=== PATIENT | female | born 1940 | race Caucasian/White ===

== ENCOUNTER 2016-08-18 12:19 | Emergency (ER) | payer OTHER ==
--- NOTE | 2016-08-18 13:59 | DIAGNOSTIC IMAGING REPORT ---
PROCEDURE: XR CHEST 1 VIEW INDICATION: COPD TECHNIQUE: Portable AP view 01:41 p.m. COMPARISON: None. FINDINGS: Lungs are clear. Heart and mediastinum are normal. Thorax is normal. IMPRESSION: 1. Negative chest.
--- NOTE | 2016-08-18 15:55 | ED NURSING NOTES ---
Clinical Report - Nurses [facility] [address] [place] [address] 08/18/2016 12:20 Patient: JOSY WELDON TRIAGE Triage time 12:48. Acuity: LEVEL 3. Chief Complaint: (Acid Reflux, COPD, Cold,). Alert. No acute distress. --13:00 Clarence Cummings R.N. 12:48 08/18/16. BP: 177/99. HR: 110. RR: 20. O2 saturation: 94%. Temp: 98.5 F. Pain level now 0/10. --13:00 Clarence Cummings R.N. 12:50. --14:06 Clarence Cummings R.N. Weight: 86.1 kg stated. Height/Length: 68 inches Per Patient. BMI: 28.9. --12:58 Clarence Cummings R.N. Medications Advair Diskus Inhalation. Atenolol Oral 50 mg, 2x a day. Calcium. ClonazePAM Oral 1 mg, 3x a day. Diltiazem ER 180 mg , daily (just recently increased from 120 mg). Levothyroxine Sodium Oral 50 mcg, daily. Lovastatin Oral 40 mg q day. Naproxen Oral 500 mg. Trazodone 50 mg q HS. Vitamin D Oral. Zymaxid Ophthalmic. --12:52 Clarence Cummings R.N. Omeprazole Oral. --12:53 Clarence Cummings R.N. Venlafaxine HCl Oral 75 mg, daily. --12:56 Clarence Cummings R.N. Allergies Codeine. --12:52 Clarence Cummings R.N. History Arrived by private vehicle. Historian: patient and family. This started last night. SOCIAL HX: Former smoker, end date 1979. Alcohol use. No drug use. FALL RISK ASSESSMENT: Fall risk assessment completed. No fall risk identified. NUTRITIONAL RISK ASSESSMENT: The nutritional risk assessment revealed no deficiencies. --13:00 Clarence Cummings R.N. ( Patient's daughter states that her mother is prescribed omeprazole, but does not take it BID as prescribed, but takes it when she had pain.). --14:06 Clarence Cummings R.N. PROBLEMS: Lewey Body Dementia. --13:03 Clarence Cummings R.N. Interventions ID band on patient. To room. --13:00 Clarence Cummings R.N. PHYSICAL ASSESSMENT GENERAL / NEURO / PSYCH: Alert. Oriented X 4. Appears in no acute distress. RESPIRATORY: Respirations not labored. GI / : Abdomen soft. SKIN: Skin is warm and dry. --13:03 Clarence Cummings R.N. NURSING PROGRESS NOTES Patient gowned. Two patient identifiers checked. Call light placed in reach. Side rails up x 1. Bed placed in lowest position. Brakes of bed on. --13:04 Clarence Cummings R.N. 13:55 08/18/2016 Duoneb (Ipratropium-Albuterol) Neb TX Nebulizer 1 unit dose given. Given by the respiratory therapist. Allergies verified and confirmed 5 rights. --13:55 Kiley Dixon R.N. 14:24 08/18/2016 Site #1 started via IV in the left forearm with an 20g angiocath, with aseptic technique; one attempt. Blood drawn: rainbow set. Sent to the lab. Saline lock flushed with 10 mL saline. --14:24 Clarence Cummings R.N. 14:24 08/18/2016 Started bag #1 1000 mL IV Fluids IV NS (Saline); at 1000 mL/hr over 1 hour(s) via site #1 --14:24 Clarence Cummings R.N. 14:32 08/18/2016 Prednisone PO Tablets 40 mg given. --14:32 Clarence Cummings R.N. ( Patient resting. IV infusing.). --15:09 Clarence Cummings R.N. ( IV fluids complete, bag unhooked and IV flushed by Mona KENNEDY. One person assisted patient to bathroom.). --15:45 Anne Freire, CATHRYN Tech1 15:44 08/18/2016 IV Fluids IV NS Discontinued: bag #1 completed upon discharge. Total amount infused: 1000 mL. IV patency established. IV site checked: no pain, redness, or swelling. IV flushed thoroughly. --15:59 Clarence Cummings R.N. 15:49 08/18/2016 Levaquin (Levofloxacin) PO Capsules 500 mg given. --15:59 Clarence Cummings R.N. 15:55 08/18/2016 Site #1 removed upon discharge. Catheter intact. Bandaid applied. --16:00 Clarence Cummings R.N. DISPOSITION / DISCHARGE Condition at departure: improved. No learning barriers present. Discharge instructions provided and reviewed with the patient and family. Family verbalized understanding. Written instructions provided in Yakut. The patient was discharged by the physician. She was discharged home and accompanied by family. She left the Emergency Department ambulatory. --16:12 Clarence Cummings R.N. 16:10 08/18/16. BP: 168/95. HR: 64. RR: 20. O2 saturation: 95%. Temp: 98.5 F. Pain level now 0/10. --16:12 Clarence Cummings R.N. Locked/Released at 08/18/2016 16:16 by Clarence Cummings R.N.
--- NOTE | 2016-08-18 15:55 | ED ORDER SUMMARY ---
..... Patient: JOSY WELDON OrderSheet [facility] VisitID: [id number] [place] [address] 76y, F Registration Date/Time: 08/18/2016 ORDER SHEET Weight: 86.1 kg (stated) Allergies: Codeine GENERAL ORDERS: Chest 1V Urgent (13:31 08/18/2016 [facility]) (Ack 13:36 [place]ouse ER Tech1) (14:33 GMarshall R.N.) CBC w Diff Urgent (13:33 08/18/2016 [facility]) (Ack 13:36 VTouse ER Tech1) (14:33 GMarshall R.N.) CMP Urgent (13:33 08/18/2016 [facility]) (Ack 13:36 VTouse ER Tech1) (14:33 GMarshall R.N.) MEDICATION ORDERS: DuoNeb Neb Tx 1 unit dose (NOW) (13:32 08/18/2016 [facility]) (13:55 LSullivan R.N.) Prednisone PO 40 mg (NOW) (13:33 08/18/2016 [facility]) (Ack 13:57 GMarshall R.N.) (14:32 GMarshall R.N.) Levaquin PO 500 mg (NOW) (15:52 08/18/2016 [facility]) (15:59 GMarshall R.N.) IV FLUIDS: IV NS : initial bolus none -, then 1000 mL/hr for X1 (NOW) (13:30 08/18/2016 [facility]) (14:24 GMarshall R.N.) ORDER SHEET NOTES: [Electronically signed by Jacob Romero Dr. (16:02 08/18/2016)] [Electronically signed by Clarence Cummings R.N. (16:16 08/18/2016)] [Electronically locked/signed by Clarence Cummings R.N. (16:16 08/18/2016)]
--- NOTE | 2016-08-18 15:55 | ED ORDER SUMMARY ---
..... Patient: JOSY WELDON OrderSheet [facility] VisitID: [id number] [place] [address] 76y, F Registration Date/Time: 08/18/2016 ORDER SHEET Weight: 86.1 kg (stated) Allergies: Codeine GENERAL ORDERS: Chest 1V Urgent (13:31 08/18/2016 [facility]) (Ack 13:36 [place] ER Tech1) (14:33 GMarshall R.N.) CBC w Diff Urgent (13:33 08/18/2016 [facility]) (Ack 13:36 [place] ER Tech1) (14:33 GMarshall R.N.) CMP Urgent (13:33 08/18/2016 [facility]) (Ack 13:36 [place] ER Tech1) (14:33 GMarshall R.N.) MEDICATION ORDERS: DuoNeb Neb Tx 1 unit dose (NOW) (13:32 08/18/2016 [facility]) (13:55 LSullivan R.N.) Prednisone PO 40 mg (NOW) (13:33 08/18/2016 [facility]) (Ack 13:57 GMarshall R.N.) (14:32 GMarshall R.N.) Levaquin PO 500 mg (NOW) (15:52 08/18/2016 [facility]) (15:59 GMarshall R.N.) IV FLUIDS: IV NS : initial bolus none -, then 1000 mL/hr for X1 (NOW) (13:30 08/18/2016 [facility]) (14:24 GMarshall R.N.) ORDER SHEET NOTES: [Electronically signed by Jacob Romero Dr. (16:02 08/18/2016)] [Electronically signed by Clarence Cummings R.N. (16:16 08/18/2016)] [Electronically locked/signed by Clarence Cummings R.N. (16:16 08/18/2016)]
--- NOTE | 2016-08-18 15:55 | ED CLINICAL REPORT ---
Clinical Report - Physicians/Mid Levels [facility] [address] [place] [address] 08/18/2016 12:20 Patient: JOSY WELDON Time Seen: 13:11; initial patient contact. Arrived- By private vehicle. Historian- patient. HISTORY OF PRESENT ILLNESS Chief Complaint: HISTORY OF CHRONIC OBSTRUCTIVE PULMONARY DISEASE. This started several days ago and is still present. The dyspnea is described as moderate and is worsened by cough. The patient has had sputum production, a cough and wheezing. No fever, sweating episodes or chills. Similar symptoms previously: Many times. Recent medical care: Not recently seen/assessed. REVIEW OF SYSTEMS No sore throat, nausea or vomiting. She has had a nasal discharge and sinus drainage. All systems otherwise negative, except as recorded above. PAST HISTORY Lewey Body dementia HTN GERD Alcoholism. Medications: Venlafaxine HCl Oral 75 mg, daily. Omeprazole Oral. Advair Diskus Inhalation. Atenolol Oral 50 mg, 2x a day. Calcium. ClonazePAM Oral 1 mg, 3x a day. Diltiazem ER 180 mg , daily (just recently increased from 120 mg). Levothyroxine Sodium Oral 50 mcg, daily. Lovastatin Oral 40 mg q day. Naproxen Oral 500 mg. Trazodone 50 mg q HS. Vitamin D Oral. Zymaxid Ophthalmic. Allergies: Codeine. SOCIAL HISTORY Former smoker. Alcohol use. Patient is a longstanding alcoholic. No drug use. ADDITIONAL NOTES The nursing notes have been reviewed with agreement regarding the chief complaint, PMH and patient medications and allergies. PHYSICAL EXAM Vital Signs: 08/18/2016 12:48 BP: 177/99. HR: 110. RR: 20. O2 saturation: 94%. Temp: 98.5 F. Have been reviewed. Hypertensive. Tachycardic. Respiratory rate normal. Temperature normal. Oxygen saturation low. Appearance: Alert. No acute distress. Eyes: Eyes normal inspection. ENT: Dry mucous membranes present. Neck: No jugular venous distention. CVS: Normal heart rate and rhythm. Heart sounds normal. Respiratory: Mild respiratory distress with accessory muscle use and retractions. Moderately prolonged expirations. Moderately decreased air movement diffusely over both lungs. Expiratory moderate bilateral wheezes diffusely. Abdomen: Soft and nontender. Skin: Skin warm and dry. Normal skin color. No rash. Extremities: No calf tenderness. No lower extremity edema. Neuro: Oriented X 3. LABS, X-RAYS, AND EKG Chest X-ray: No acute disease. Moderate hyperinflation present on the right and left with flattening of the diaphragm. Consistent with COPD. No infiltrate. The X-rays were independently viewed by me and interpreted contemporaneously by me. Prior films were not available for comparison. Laboratory Tests: CBC w Diff: (BRANDON: 08/18/2016 14:20) ( MsgRcvd 08/18/2016 14:51) Final results Test Result Flag Units (Reference) WHITE BLOOD COUNT 5.8 K/uL (4.5-11.5) RED BLOOD COUNT 4.79 M/uL (4.00-5.20) HEMOGLOBIN 14.8 gm/dL (12.0-16.0) HEMATOCRIT 45.5 % (36.0-46.0) MEAN CELL VOLUME 95 fL (80-100) MEAN CORPUSCULAR HGB 31 pg (26-34) MEAN CORPUSCULAR HGB CONC 33 g/dL (31-37) RED CELL DISTRIBUTION WIDTH 14.6 % (11.6-14.8) PLATELET COUNT 167 K/uL (150-400) NEUTROPHIL % 65.3 % (50-75) LYMPH % 22.2 L % (25-40) MONO % 11.3 % (3-14) EOSINOPHIL % 0.9 % (0-4) BASOPHIL % 0.3 % (0-2) CMP: (BRANDON: 08/18/2016 14:20) ( MsgRcvd 08/18/2016 15:01) Final results Test Result Flag Units (Reference) GLUCOSE 124 H mg/dL (70-110) BUN 12 mg/dL (7-18) CREATININE 0.6 mg/dL (0.6-1.3) Estimated GFR >60 mL/min Estimated GFR- >60 mL/min Note: Persistent reduction over 3 months in eGFR<60 mL/min/1.73 m2 defines CKD. Patients with eGFR values>=60 mL/min/1.73 m2 may also have CKD if evidence ofpersistent proteinuria. Additional information may be foundat www.kidney.org. SODIUM 140 mmol/L (136-145) POTASSIUM 3.8 mmol/L (3.5-5.1) CHLORIDE 103 mmol/L (98-107) CARBON DIOXIDE 30 mmol/L (21-32) CALCIUM 9.0 mg/dL (8.5-10.1) TOTAL PROTEIN 7.7 g/dL (6.4-8.2) ALBUMIN 4.4 g/dL (3.3-5.0) BILIRUBIN, TOTAL 0.6 mg/dL (0.0-1.0) ALKALINE PHOSPHATASE 65 U/L (46-116) AST (SGOT) 23 U/L (15-37) ALT (SGPT) 29 U/L (12-78) . PROGRESS AND PROCEDURES Disposition: Discharged home in good and improved condition. Condition: good. CLINICAL IMPRESSION Acute exacerbation of COPD. Gastroesophageal reflux disease with esophagitis. INSTRUCTIONS Your Current Medications: CONTINUE TAKING THE FOLLOWING MEDICATIONS: Advair Diskus Inhalation. Atenolol Oral : 50 mg 2x a day. Calcium*. ClonazePAM Oral : 1 mg 3x a day. Diltiazem ER* : 180 mg daily, just recently increased from 120 mg. Levothyroxine Sodium Oral : 50 mcg daily. Lovastatin Oral : 40 mg q day. Naproxen Oral : 500 mg. Omeprazole Oral. Trazodone 50 mg q HS*. Venlafaxine HCl Oral : 75 mg daily. Vitamin D Oral. Zymaxid Ophthalmic. Prescription Medications: Levaquin 500 mg: take 1 tab orally every day for 4 days. No refills. Substitution is permissible. (Start on 08/19/16) Zantac 150 mg: take 1 orally every 12 hours. Dispense sixty (60). No refills. Substitution is permissible. Prednisone 20 mg: take 2 orally every day for 4 days. Dispense sufficient quantity. No refills. (Start on 08/19/16) Follow-up: Follow up with your doctor in about two days. Call for an appointment. Blood pressure screening was not performed during this visit because the patient has an active diagnosis of hypertension. The patient should follow up with a primary care provider for blood pressure management. (Electronically signed by Jacob Romero Dr. 08/18/2016 16:02)
--- NOTE | 2016-08-18 16:16 | ED DISCHARGE INSTRUCTIONS ---
Patient: JOSY WELDON General Instructions [facility] VisitID: [id number] [place] [address] 76y, F Registration Date/Time: 08/18/2016 Acute exacerbation of COPD. Gastroesophageal reflux disease with esophagitis. INSTRUCTIONS Your Current Medications: CONTINUE TAKING THE FOLLOWING MEDICATIONS: Advair Diskus Inhalation. Atenolol Oral : 50 mg 2x a day. Calcium*. ClonazePAM Oral : 1 mg 3x a day. Diltiazem ER* : 180 mg daily, just recently increased from 120 mg. Levothyroxine Sodium Oral : 50 mcg daily. Lovastatin Oral : 40 mg q day. Naproxen Oral : 500 mg. Omeprazole Oral. Trazodone 50 mg q HS*. Venlafaxine HCl Oral : 75 mg daily. Vitamin D Oral. Zymaxid Ophthalmic. Prescription Medications: Levaquin 500 mg: take 1 tab orally every day for 4 days. No refills. Substitution is permissible. (Start on 08/19/16) Zantac 150 mg: take 1 orally every 12 hours. Dispense sixty (60). No refills. Substitution is permissible. Prednisone 20 mg: take 2 orally every day for 4 days. Dispense sufficient quantity. No refills. (Start on 08/19/16) Follow-up: Follow up with your doctor in about two days. Call for an appointment. Blood pressure screening was not performed during this visit because the patient has an active diagnosis of hypertension. The patient should follow up with a primary care provider for blood pressure management. ADDITIONAL INFORMATION COPD Flare Both emphysema and chronic bronchitis are forms of chronic obstructive pulmonary disease (COPD). It is most often caused by many years of smoking tobacco. Many things can make your lung disease suddenly get worse. These causes include the common cold, pneumonia, acute bronchitis, missing doses of your regular breathing medicines, or being around smoke, dust, or other air pollutants. A COPD flare may last 7 to 14 days. Your doctor may prescribe medicineto relax your airways and prevent wheezing. Your doctor may also prescribe antibiotics if he or she thinks you havea bacterial infection. Prednisone can helpease inflammation in a severe attack. Home care Here are things you can do at home: Drink lots of water or other fluids (at least 10 glasses a day) during an attack. This will loosen lung secretions and make it easier to breathe. If you have heart or kidney disease, check with your doctor before you drink extra amounts of fluids. Take prescribed medicine exactly at the times advised. If you have a hand-held inhaler or aerosol breathing medicine, don't use it more than once every 4 hours, unless your doctor tells you to. If you were givenan antibiotic or prednisone, take all of the medicine even if you are feeling better after a few days. Don't smoke. Avoid being aroundthe smoke of others. If you were given an inhaler, use it exactly as directed. If you need to use it more often than prescribed, your condition may be getting worse. Call your doctor. Follow-up care Follow up with your health care provider.If you are 65 or older or have chronic asthma or COPD, you should get a single dose of the pneumococcal vaccine and aflu shot each year. You may need a second dose of the pneumococcal vaccine if you had the first dose at a younger age. Your health care provider will let you know if you need a second dose. For all other people, the usual dose for the pneumococcal vaccine is 1 or 2 shots. Yourprovider can discuss this with you. When to seek medical care Get prompt medical attention ifany of these occur: Increased wheezing or shortness of breath Need to use your inhalers more often than usual without relief Fever of 100.4F(38C) or higher, or as directed by your health care provider Coughing up lots of dark-colored or bloody sputum (mucus) Chest pain with each breath You do not start to improve within 24 hours GERD (Adult) The esophagus is a tube that carries food from the mouth to the stomach. A valve at the lower end of the esophagus prevents stomach acid from flowing upward. If this valve does not work properly, acid from the stomach enters the esophagus. If this occurs over and over, the acid will injure the lining of the esophagus. This condition is called GERD (gastroesophageal reflux disease) or acid reflux. When stomach acid flows upward into the esophagus, it causes burning, pressure or sharp pain in the upper abdomen or mid to lower chest. The pain can spread to the neck, back, or shoulder, similar to heart pain (angina). There may be belching, an acid taste in the back of the throat, chronic cough, or sore throat or hoarseness. GERD symptoms often occur during the day after a big meal, but it can also occur at night when lying down. Smoking,as well as drinking alcohol, increases the risk of GERD. GERD is a chronic condition. Once it begins, it is often lifelong. Treatment includes changes in eating habits and the use of acid adali medications to decrease the amount of acid in the stomach. Symptoms often improve with treatment, but if treatment is stopped, the symptoms usually return after a few months. So most persons with GERD will need to continue treatment. Home Care: Take the prescribed acid adali medication for the full course of treatment even if you begin to feel better sooner. This medication can take up to several days to fully control your symptoms. If you cant afford the prescribed medication, you can try epae-fzq-uliodml acid blockers, such as Pepcid AC, Tagamet, Zantac, or Aciphex. If these do not relieve your symptoms, a stronger acid-adali can be tried, such as Prilosec OTC. You can use antacids, such as Tums, Rolaids, Mylanta, or Maalox, for pain. This will be useful the first few days after starting acid blockers when the blockers havent started working yet. Follow the directions on the label. Liquid antacids may work better than tablets. Note that antacids can interfere with absorption of certain medications. Specifically, do not take Tagamet (cimetidine), Zantac (ranitidine), or Carafate (sucralfate) within 1 hour of taking an antacid. Talk with your pharmacist if you have any questions. Limit or avoid fatty, fried, and spicy foods, as well as coffee, chocolate, mint, and foods with high acid content such as tomatoes and citrus fruit and juices (orange, grapefruit, lemon). Avoid alcohol and smoking. Dont eat large meals, especially at night. Frequent, smaller meals are best. Do not lie down right after eating. And dont eat anything 3 hours before going to bed. If you are overweight, losing weight will reduce symptoms. Women should not wear corsets or girdles because this increases pressure on the stomach and worsens reflux. If your symptoms occur during sleep, use a foam wedge to elevate your upper body (not just your head.) Or, place 4" blocks under the head of your bed. Follow Up with your doctor or as advised by our staff. Further testing may be needed. If you do not begin to improve over the next 4 days, contact your doctor. If you had an x-ray, CT scan, or ECG (electrocardiogram), it will be reviewed by a specialist. Youll be notified of any new findings that affect your care. Get Prompt Medical Attention if any of the following occur: Stomach pain gets worse or moves to the lower right abdomen (appendix area) Chest pain appears or gets worse, or spreads to the back, neck, shoulder, or arm Frequent vomiting (cant keep down liquids) Blood in the stool or vomit (red or black in color) Feeling weak or dizzy, fainting, or trouble breathing Fever of 100.4F (38C) or higher, or as directed by your healthcare provider Levofloxacin Oral tablet What is this medicine? LEVOFLOXACIN (bin varner) is a quinolone antibiotic. It is used to treat certain kinds of bacterial infections. It will not work for colds, flu, or other viral infections. How should I use this medicine? Take this medicine by mouth with a full glass of water. Follow the directions on the prescription label. This medicine can be taken with or without food. Take your medicine at regular intervals. Do not take your medicine more often than directed. Do not skip doses or stop your medicine early even if you feel better. Do not stop taking except on your doctor's advice. A special MedGuide will be given to you by the pharmacist with each prescription and refill. Be sure to read this information carefully each time. Talk to your rip/mould operator regarding the use of this medicine in children. While this drug may be prescribed for children as young as 6 months for selected conditions, precautions do apply. What side effects may I notice from receiving this medicine? Side effects that you should report to your doctor or health farm or ranch animal caretaker as soon as possible: -allergic reactions like skin rash or hives, swelling of the face, lips, or tongue -changes in vision -confusion, nightmares or hallucinations -difficulty breathing -irregular heartbeat, chest pain -joint, muscle or tendon pain -pain or difficulty passing urine -persistent headache with or without blurred vision -redness, blistering, peeling or loosening of the skin, including inside the mouth -seizures -unusual pain, numbness, tingling, or weakness -vaginal irritation, discharge Side effects that usually do not require medical attention (report to your doctor or health farm or ranch animal caretaker if they continue or are bothersome): -diarrhea -dry mouth -headache -stomach upset, nausea -trouble sleeping What may interact with this medicine? Do not take this medicine with any of the following medications: - arsenic trioxide - chloroquine - droperidol - medicines for irregular heart rhythm like amiodarone, disopyramide, dofetilide, flecainide, quinidine, procainamide, sotalol - some medicines for depression or mental problems like phenothiazines, pimozide, and ziprasidone This medicine may also interact with the following medications: - amoxapine -antacids - cisapride - dairy products - didanosine (ddI) buffered tablets or powder - haloperidol - multivitamins -NSAIDS, medicines for pain and inflammation, like ibuprofen or naproxen - retinoid products like tretinoin or isotretinoin - risperidone - some other antibiotics like clarithromycin or erythromycin - sucralfate - theophylline - warfarin What if I miss a dose? If you miss a dose, take it as soon as you remember. If it is almost time for your next dose, take only that dose. Do not take double or extra doses. Where should I keep my medicine? Keep out of the reach of children. Store at room temperature between 15 and 30 degrees C (59 and 86 degrees F). Keep in a tightly closed container. Throw away any unused medicine after the expiration date. What should I tell my health care provider before I take this medicine? They need to know if you have any of these conditions: cerebral disease irregular heartbeat kidney disease seizure disorder an unusual or allergic reaction to levofloxacin, other antibiotics or medicines, foods, dyes, or preservatives or trying to get breast-feeding What should I watch for while using this medicine? Tell your doctor or health farm or ranch animal caretaker if your symptoms do not improve or if they get worse. Drink several glasses of water a day and cut down on drinks that contain caffeine. You must not get dehydrated while taking this medicine. You may get drowsy or dizzy. Do not drive, use machinery, or do anything that needs mental alertness until you know how this medicine affects you. Do not sit or stand up quickly, especially if you are an older patient. This reduces the risk of dizzy or fainting spells. This medicine can make you more sensitive to the sun. Keep out of the sun. If you cannot avoid being in the sun, wear protective clothing and use a sunscreen. Do not use sun lamps or tanning beds/booths. Contact your doctor if you get a sunburn. If you are a diabetic monitor your blood glucose carefully. If you get an unusual reading stop taking this medicine and call your doctor right away. Do not treat diarrhea with mafz-lbu-ymzhumn products. Contact your doctor if you have diarrhea that lasts more than 2 days or if the diarrhea is severe and watery. Avoid antacids, calcium, iron, and zinc products for 2 hours before and 2 hours after taking a dose of this medicine. Ranitidine Hydrochloride Oral tablet What is this medicine? RANITIDINE (ra BLAYNE valladares) is a type of antihistamine that blocks the release of stomach acid. It is used to treat stomach or intestinal ulcers. It can relieve ulcer pain and discomfort, and the heartburn from acid reflux. How should I use this medicine? Take this medicine by mouth with a glass of water. Follow the directions on the prescription label. If you only take this medicine once a day, take it at bedtime. Take your medicine at regular intervals. Do not take your medicine more often than directed. Do not stop taking except on your doctor's advice. Talk to your rip/mould operator regarding the use of this medicine in children. Special care may be needed. What side effects may I notice from receiving this medicine? Side effects that you should report to your doctor or health farm or ranch animal caretaker as soon as possible: agitation, nervousness, depression, hallucinations allergic reactions like skin rash, itching or hives, swelling of the face, lips, or tongue breast enlargement in both males and females breathing problems redness, blistering, peeling or loosening of the skin, including inside the mouth unusual bleeding or bruising unusually weak or tired vomiting yellowing of the skin or eyes Side effects that usually do not require medical attention (report to your doctor or health farm or ranch animal caretaker if they continue or are bothersome): constipation or diarrhea dizziness headache nausea What may interact with this medicine? atazanavir delavirdine gefitinib glipizide ketoconazole midazolam procainamide propantheline triazolam warfarin What if I miss a dose? If you miss a dose, take it as soon as you can. If it is almost time for your next dose, take only that dose. Do not take double or extra doses. Where should I keep my medicine? Keep out of the reach of children. Store at room temperature between 15 and 30 degrees C (59 and 86 degrees F). Protect from light and moisture. Keep container tightly closed. Throw away any unused medicine after the expiration date. What should I tell my health care provider before I take this medicine? They need to know if you have any of these conditions: kidney disease liver disease porphyria an unusual or allergic reaction to ranitidine, other medicines, foods, dyes, or preservatives or trying to get breast-feeding What should I watch for while using this medicine? Tell your doctor or health farm or ranch animal caretaker if your condition does not start to get better or gets worse. You may need to take this medicine for several days as prescribed before your symptoms get better. Finish the full course of tablets prescribed, even if you feel better. Do not smoke cigarettes or drink alcohol. These increase irritation in your stomach and can lengthen the time it will take for ulcers to heal. Cigarettes and alcohol can also make acid reflux or heartburn worse. If you get black, tarry stools or vomit up what looks like coffee grounds, call your doctor or health farm or ranch animal caretaker at once. You may have a bleeding ulcer. Prednisone Oral tablet What is this medicine? PREDNISONE (PRED ni sone) is a corticosteroid. It is commonly used to treat inflammation of the skin, joints, lungs, and other organs. Common conditions treated include asthma, allergies, and arthritis. It is also used for other conditions, such as blood disorders and diseases of the adrenal glands. How should I use this medicine? Take this medicine by mouth with a glass of water. Follow the directions on the prescription label. Take this medicine with food. If you are taking this medicine once a day, take it in the morning. Do not take more medicine than you are told to take. Do not suddenly stop taking your medicine because you may develop a severe reaction. Your doctor will tell you how much medicine to take. If your doctor wants you to stop the medicine, the dose may be slowly lowered over time to avoid any side effects. Talk to your rip/mould operator regarding the use of this medicine in children. Special care may be needed. What side effects may I notice from receiving this medicine? Side effects that you should report to your doctor or health farm or ranch animal caretaker as soon as possible: allergic reactions like skin rash, itching or hives, swelling of the face, lips, or tongue changes in emotions or moods changes in vision depressed mood eye pain fever or chills, cough, sore throat, pain or difficulty passing urine increased thirst swelling of ankles, feet Side effects that usually do not require medical attention (report to your doctor or health farm or ranch animal caretaker if they continue or are bothersome): confusion, excitement, restlessness headache nausea, vomiting skin problems, acne, thin and shiny skin trouble sleeping weight gain What may interact with this medicine? Do not take this medicine with any of the following medications: metyrapone mifepristone This medicine may also interact with the following medications: aminoglutethimide amphotericin B aspirin and aspirin-like medicines barbiturates certain medicines for diabetes, like glipizide or glyburide cholestyramine cholinesterase inhibitors cyclosporine digoxin diuretics ephedrine female hormones, like estrogens and control pills isoniazid ketoconazole NSAIDS, medicines for pain and inflammation, like ibuprofen or naproxen phenytoin rifampin toxoids vaccines warfarin What if I miss a dose? If you miss a dose, take it as soon as you can. If it is almost time for your next dose, talk to your doctor or health farm or ranch animal caretaker. You may need to miss a dose or take an extra dose. Do not take double or extra doses without advice. Where should I keep my medicine? Keep out of the reach of children. Store at room temperature between 15 and 30 degrees C (59 and 86 degrees F). Protect from light. Keep container tightly closed. Throw away any unused medicine after the expiration date. What should I tell my health care provider before I take this medicine? They need to know if you have any of these conditions: Sandia's syndrome diabetes glaucoma heart disease high blood pressure infection (especially a virus infection such as chickenpox, cold sores, or herpes) kidney disease liver disease mental illness myasthenia gravis osteoporosis seizures stomach or intestine problems thyroid disease an unusual or allergic reaction to lactose, prednisone, other medicines, foods, dyes, or preservatives or trying to get breast-feeding What should I watch for while using this medicine? Visit your doctor or health farm or ranch animal caretaker for regular checks on your progress. If you are taking this medicine over a prolonged period, carry an identification card with your name and address, the type and dose of your medicine, and your doctor's name and address. This medicine may increase your risk of getting an infection. Tell your doctor or health farm or ranch animal caretaker if you are around anyone with measles or chickenpox, or if you develop sores or blisters that do not heal properly. If you are going to have surgery, tell your doctor or health farm or ranch animal caretaker that you have taken this medicine within the last twelve months. Ask your doctor or health farm or ranch animal caretaker about your diet. You may need to lower the amount of salt you eat. This medicine may affect blood sugar levels. If you have diabetes, check with your doctor or health farm or ranch animal caretaker before you change your diet or the dose of your diabetic medicine. You have been given the following additional information: COPD Flare GERD (Adult) Levofloxacin Oral tablet Ranitidine Hydrochloride Oral tablet Prednisone Oral tablet (Electronically signed by Jacob Romero Dr. 08/18/2016 16:02)
--- NOTE | 2016-08-18 16:16 | ED MAR SUMMARY ---
..... Medication Administration Record [facility] [address] [place] [address] Patient: JOSY WELDON Visit ID: [id number] 76y, F Weight: 86.1 kg Height/Length: 68 in BMI: 28.9 ALLERGIES: Codeine Given 13:55 08/18/2016 Kiley Dixon R.N. Medication Administered: DUONEB [NEB TX] (IPRATROPIUM-ALBUTEROL), Dose: 1 unit dose Nebulizer Neb TX. Medication Ordered: DuoNeb Neb Tx 1 unit dose (NOW). Start 14:24 08/18/2016 Clarence Cummings R.N., Stop 15:44 08/18/2016 Clarence Cummings R.N. Medication Administered: IV NS (SALINE), Dose: IV Fluids over 1 hour(s), Rate: 1000 mL/hr, Dispensed: 1000 mL bag, Site: #1 left forearm. Medication Ordered: IV NS : initial bolus none -, then 1000 mL/hr for X1 (NOW). Given 14:32 08/18/2016 Clarence Cummings R.N. Medication Administered: PREDNISONE [PO], Dose: 40 mg Tablets PO. Medication Ordered: Prednisone PO 40 mg (NOW). Given 15:49 08/18/2016 Clarence Cummings R.N. Medication Administered: LEVAQUIN [PO] (LEVOFLOXACIN), Dose: 500 mg Capsules PO. Medication Ordered: Levaquin PO 500 mg (NOW).
--- NOTE | 2016-08-18 16:16 | ED MED RECONCILIATION SUMMARY ---
Patient: JOSY WELDON Medication Reconciliation Report [facility] VisitID: [id number] [place] [address] 76y, F Registration Date/Time: 08/18/2016 Weight: 86.1 kg Height/Length: 68 in. BMI: 28.9 ALLERGIES: Codeine The patient's Home Medications are listed below: CONTINUE TAKING THE FOLLOWING MEDICATIONS: Advair Diskus Inhalation Atenolol Oral 50 mg, 2x a day Calcium ClonazePAM Oral 1 mg, 3x a day Diltiazem ER 180 mg , daily, just recently increased from 120 mg Levothyroxine Sodium Oral 50 mcg, daily Lovastatin Oral 40 mg q day Naproxen Oral 500 mg Omeprazole Oral Trazodone 50 mg q HS Venlafaxine HCl Oral 75 mg, daily Vitamin D Oral Zymaxid Ophthalmic The source(s) of the original Home Medication information: Not obtained. The following Medications were given to the patient in the Emergency Department: Duoneb [Neb Tx] Neb TX 1 unit dose, administered: 08/18/2016 1:55:00 PM IV NS IV Fluids bolus 0, then 1000 mL/hr, administered: 08/18/2016 2:24:00 PM Prednisone [PO] PO 40 mg, administered: 08/18/2016 2:32:00 PM Levaquin [PO] PO 500 mg, administered: 08/18/2016 3:49:00 PM The following Medications were prescribed to the patient: Levaquin 500 mg: take 1 tab orally every day for 4 days. No refills. Substitution is permissible.(Start on 08/19/16) -- Jacob Romero Dr. Zantac 150 mg: take 1 orally every 12 hours. Dispense sixty (60). No refills. Substitution is permissible. -- Jacob Romero Dr. Prednisone 20 mg: take 2 orally every day for 4 days. Dispense sufficient quantity. No refills.(Start on 08/19/16) -- Jacob Romero Dr.
--- NOTE | 2016-08-18 16:16 | ED MED RECONCILIATION SUMMARY ---
Patient: JOSY WELDON Medication Reconciliation Report [facility] VisitID: [id number] [place] [address] 76y, F Registration Date/Time: 08/18/2016 Weight: 86.1 kg Height/Length: 68 in. BMI: 28.9 ALLERGIES: Codeine The patient's Home Medications are listed below: CONTINUE TAKING THE FOLLOWING MEDICATIONS: Advair Diskus Inhalation Atenolol Oral 50 mg, 2x a day Calcium ClonazePAM Oral 1 mg, 3x a day Diltiazem ER 180 mg , daily, just recently increased from 120 mg Levothyroxine Sodium Oral 50 mcg, daily Lovastatin Oral 40 mg q day Naproxen Oral 500 mg Omeprazole Oral Trazodone 50 mg q HS Venlafaxine HCl Oral 75 mg, daily Vitamin D Oral Zymaxid Ophthalmic The source(s) of the original Home Medication information: Not obtained. The following Medications were given to the patient in the Emergency Department: Duoneb [Neb Tx] Neb TX 1 unit dose, administered: 08/18/2016 1:55:00 PM IV NS IV Fluids bolus 0, then 1000 mL/hr, administered: 08/18/2016 2:24:00 PM Prednisone [PO] PO 40 mg, administered: 08/18/2016 2:32:00 PM Levaquin [PO] PO 500 mg, administered: 08/18/2016 3:49:00 PM The following Medications were prescribed to the patient: Levaquin 500 mg: take 1 tab orally every day for 4 days. No refills. Substitution is permissible.(Start on 08/19/16) -- Jacob Romero Dr. Zantac 150 mg: take 1 orally every 12 hours. Dispense sixty (60). No refills. Substitution is permissible. -- Jacob Romero Dr. Prednisone 20 mg: take 2 orally every day for 4 days. Dispense sufficient quantity. No refills.(Start on 08/19/16) -- Jacob Romero Dr.
--- NOTE | 2016-08-18 16:16 | ED DISCHARGE INSTRUCTIONS ---
Patient: JOSY WELDON General Instructions [facility] VisitID: [id number] [place] [address] 76y, F Registration Date/Time: 08/18/2016 Acute exacerbation of COPD. Gastroesophageal reflux disease with esophagitis. INSTRUCTIONS Your Current Medications: CONTINUE TAKING THE FOLLOWING MEDICATIONS: Advair Diskus Inhalation. Atenolol Oral : 50 mg 2x a day. Calcium*. ClonazePAM Oral : 1 mg 3x a day. Diltiazem ER* : 180 mg daily, just recently increased from 120 mg. Levothyroxine Sodium Oral : 50 mcg daily. Lovastatin Oral : 40 mg q day. Naproxen Oral : 500 mg. Omeprazole Oral. Trazodone 50 mg q HS*. Venlafaxine HCl Oral : 75 mg daily. Vitamin D Oral. Zymaxid Ophthalmic. Prescription Medications: Levaquin 500 mg: take 1 tab orally every day for 4 days. No refills. Substitution is permissible. (Start on 08/19/16) Zantac 150 mg: take 1 orally every 12 hours. Dispense sixty (60). No refills. Substitution is permissible. Prednisone 20 mg: take 2 orally every day for 4 days. Dispense sufficient quantity. No refills. (Start on 08/19/16) Follow-up: Follow up with your doctor in about two days. Call for an appointment. Blood pressure screening was not performed during this visit because the patient has an active diagnosis of hypertension. The patient should follow up with a primary care provider for blood pressure management. ADDITIONAL INFORMATION COPD Flare Both emphysema and chronic bronchitis are forms of chronic obstructive pulmonary disease (COPD). It is most often caused by many years of smoking tobacco. Many things can make your lung disease suddenly get worse. These causes include the common cold, pneumonia, acute bronchitis, missing doses of your regular breathing medicines, or being around smoke, dust, or other air pollutants. A COPD flare may last 7 to 14 days. Your doctor may prescribe medicineto relax your airways and prevent wheezing. Your doctor may also prescribe antibiotics if he or she thinks you havea bacterial infection. Prednisone can helpease inflammation in a severe attack. Home care Here are things you can do at home: Drink lots of water or other fluids (at least 10 glasses a day) during an attack. This will loosen lung secretions and make it easier to breathe. If you have heart or kidney disease, check with your doctor before you drink extra amounts of fluids. Take prescribed medicine exactly at the times advised. If you have a hand-held inhaler or aerosol breathing medicine, don't use it more than once every 4 hours, unless your doctor tells you to. If you were givenan antibiotic or prednisone, take all of the medicine even if you are feeling better after a few days. Don't smoke. Avoid being aroundthe smoke of others. If you were given an inhaler, use it exactly as directed. If you need to use it more often than prescribed, your condition may be getting worse. Call your doctor. Follow-up care Follow up with your health care provider.If you are 65 or older or have chronic asthma or COPD, you should get a single dose of the pneumococcal vaccine and aflu shot each year. You may need a second dose of the pneumococcal vaccine if you had the first dose at a younger age. Your health care provider will let you know if you need a second dose. For all other people, the usual dose for the pneumococcal vaccine is 1 or 2 shots. Yourprovider can discuss this with you. When to seek medical care Get prompt medical attention ifany of these occur: Increased wheezing or shortness of breath Need to use your inhalers more often than usual without relief Fever of 100.4F(38C) or higher, or as directed by your health care provider Coughing up lots of dark-colored or bloody sputum (mucus) Chest pain with each breath You do not start to improve within 24 hours GERD (Adult) The esophagus is a tube that carries food from the mouth to the stomach. A valve at the lower end of the esophagus prevents stomach acid from flowing upward. If this valve does not work properly, acid from the stomach enters the esophagus. If this occurs over and over, the acid will injure the lining of the esophagus. This condition is called GERD (gastroesophageal reflux disease) or acid reflux. When stomach acid flows upward into the esophagus, it causes burning, pressure or sharp pain in the upper abdomen or mid to lower chest. The pain can spread to the neck, back, or shoulder, similar to heart pain (angina). There may be belching, an acid taste in the back of the throat, chronic cough, or sore throat or hoarseness. GERD symptoms often occur during the day after a big meal, but it can also occur at night when lying down. Smoking,as well as drinking alcohol, increases the risk of GERD. GERD is a chronic condition. Once it begins, it is often lifelong. Treatment includes changes in eating habits and the use of acid adali medications to decrease the amount of acid in the stomach. Symptoms often improve with treatment, but if treatment is stopped, the symptoms usually return after a few months. So most persons with GERD will need to continue treatment. Home Care: Take the prescribed acid adali medication for the full course of treatment even if you begin to feel better sooner. This medication can take up to several days to fully control your symptoms. If you cant afford the prescribed medication, you can try [id number] acid blockers, such as Pepcid AC, Tagamet, Zantac, or Aciphex. If these do not relieve your symptoms, a stronger acid-adali can be tried, such as Prilosec OTC. You can use antacids, such as Tums, Rolaids, Mylanta, or Maalox, for pain. This will be useful the first few days after starting acid blockers when the blockers havent started working yet. Follow the directions on the label. Liquid antacids may work better than tablets. Note that antacids can interfere with absorption of certain medications. Specifically, do not take Tagamet (cimetidine), Zantac (ranitidine), or Carafate (sucralfate) within 1 hour of taking an antacid. Talk with your pharmacist if you have any questions. Limit or avoid fatty, fried, and spicy foods, as well as coffee, chocolate, mint, and foods with high acid content such as tomatoes and citrus fruit and juices (orange, grapefruit, lemon). Avoid alcohol and smoking. Dont eat large meals, especially at night. Frequent, smaller meals are best. Do not lie down right after eating. And dont eat anything 3 hours before going to bed. If you are overweight, losing weight will reduce symptoms. Women should not wear corsets or girdles because this increases pressure on the stomach and worsens reflux. If your symptoms occur during sleep, use a foam wedge to elevate your upper body (not just your head.) Or, place 4" blocks under the head of your bed. Follow Up with your doctor or as advised by our staff. Further testing may be needed. If you do not begin to improve over the next 4 days, contact your doctor. If you had an x-ray, CT scan, or ECG (electrocardiogram), it will be reviewed by a specialist. Youll be notified of any new findings that affect your care. Get Prompt Medical Attention if any of the following occur: Stomach pain gets worse or moves to the lower right abdomen (appendix area) Chest pain appears or gets worse, or spreads to the back, neck, shoulder, or arm Frequent vomiting (cant keep down liquids) Blood in the stool or vomit (red or black in color) Feeling weak or dizzy, fainting, or trouble breathing Fever of 100.4F (38C) or higher, or as directed by your healthcare provider Levofloxacin Oral tablet What is this medicine? LEVOFLOXACIN (bin varner) is a quinolone antibiotic. It is used to treat certain kinds of bacterial infections. It will not work for colds, flu, or other viral infections. How should I use this medicine? Take this medicine by mouth with a full glass of water. Follow the directions on the prescription label. This medicine can be taken with or without food. Take your medicine at regular intervals. Do not take your medicine more often than directed. Do not skip doses or stop your medicine early even if you feel better. Do not stop taking except on your doctor's advice. A special MedGuide will be given to you by the pharmacist with each prescription and refill. Be sure to read this information carefully each time. Talk to your housekeeper regarding the use of this medicine in children. While this drug may be prescribed for children as young as 6 months for selected conditions, precautions do apply. What side effects may I notice from receiving this medicine? Side effects that you should report to your doctor or health resident care spec as soon as possible: -allergic reactions like skin rash or hives, swelling of the face, lips, or tongue -changes in vision -confusion, nightmares or hallucinations -difficulty breathing -irregular heartbeat, chest pain -joint, muscle or tendon pain -pain or difficulty passing urine -persistent headache with or without blurred vision -redness, blistering, peeling or loosening of the skin, including inside the mouth -seizures -unusual pain, numbness, tingling, or weakness -vaginal irritation, discharge Side effects that usually do not require medical attention (report to your doctor or health resident care spec if they continue or are bothersome): -diarrhea -dry mouth -headache -stomach upset, nausea -trouble sleeping What may interact with this medicine? Do not take this medicine with any of the following medications: - arsenic trioxide - chloroquine - droperidol - medicines for irregular heart rhythm like amiodarone, disopyramide, dofetilide, flecainide, quinidine, procainamide, sotalol - some medicines for depression or mental problems like phenothiazines, pimozide, and ziprasidone This medicine may also interact with the following medications: - amoxapine -antacids - cisapride - dairy products - didanosine (ddI) buffered tablets or powder - haloperidol - multivitamins -NSAIDS, medicines for pain and inflammation, like ibuprofen or naproxen - retinoid products like tretinoin or isotretinoin - risperidone - some other antibiotics like clarithromycin or erythromycin - sucralfate - theophylline - warfarin What if I miss a dose? If you miss a dose, take it as soon as you remember. If it is almost time for your next dose, take only that dose. Do not take double or extra doses. Where should I keep my medicine? Keep out of the reach of children. Store at room temperature between 15 and 30 degrees C (59 and 86 degrees F). Keep in a tightly closed container. Throw away any unused medicine after the expiration date. What should I tell my health care provider before I take this medicine? They need to know if you have any of these conditions: cerebral disease irregular heartbeat kidney disease seizure disorder an unusual or allergic reaction to levofloxacin, other antibiotics or medicines, foods, dyes, or preservatives or trying to get breast-feeding What should I watch for while using this medicine? Tell your doctor or health resident care spec if your symptoms do not improve or if they get worse. Drink several glasses of water a day and cut down on drinks that contain caffeine. You must not get dehydrated while taking this medicine. You may get drowsy or dizzy. Do not drive, use machinery, or do anything that needs mental alertness until you know how this medicine affects you. Do not sit or stand up quickly, especially if you are an older patient. This reduces the risk of dizzy or fainting spells. This medicine can make you more sensitive to the sun. Keep out of the sun. If you cannot avoid being in the sun, wear protective clothing and use a sunscreen. Do not use sun lamps or tanning beds/booths. Contact your doctor if you get a sunburn. If you are a diabetic monitor your blood glucose carefully. If you get an unusual reading stop taking this medicine and call your doctor right away. Do not treat diarrhea with pfpz-[id number]-[id number] products. Contact your doctor if you have diarrhea that lasts more than 2 days or if the diarrhea is severe and watery. Avoid antacids, calcium, iron, and zinc products for 2 hours before and 2 hours after taking a dose of this medicine. Ranitidine Hydrochloride Oral tablet What is this medicine? RANITIDINE (ra BLAYNE valladares) is a type of antihistamine that blocks the release of stomach acid. It is used to treat stomach or intestinal ulcers. It can relieve ulcer pain and discomfort, and the heartburn from acid reflux. How should I use this medicine? Take this medicine by mouth with a glass of water. Follow the directions on the prescription label. If you only take this medicine once a day, take it at bedtime. Take your medicine at regular intervals. Do not take your medicine more often than directed. Do not stop taking except on your doctor's advice. Talk to your housekeeper regarding the use of this medicine in children. Special care may be needed. What side effects may I notice from receiving this medicine? Side effects that you should report to your doctor or health resident care spec as soon as possible: agitation, nervousness, depression, hallucinations allergic reactions like skin rash, itching or hives, swelling of the face, lips, or tongue breast enlargement in both males and females breathing problems redness, blistering, peeling or loosening of the skin, including inside the mouth unusual bleeding or bruising unusually weak or tired vomiting yellowing of the skin or eyes Side effects that usually do not require medical attention (report to your doctor or health resident care spec if they continue or are bothersome): constipation or diarrhea dizziness headache nausea What may interact with this medicine? atazanavir delavirdine gefitinib glipizide ketoconazole midazolam procainamide propantheline triazolam warfarin What if I miss a dose? If you miss a dose, take it as soon as you can. If it is almost time for your next dose, take only that dose. Do not take double or extra doses. Where should I keep my medicine? Keep out of the reach of children. Store at room temperature between 15 and 30 degrees C (59 and 86 degrees F). Protect from light and moisture. Keep container tightly closed. Throw away any unused medicine after the expiration date. What should I tell my health care provider before I take this medicine? They need to know if you have any of these conditions: kidney disease liver disease porphyria an unusual or allergic reaction to ranitidine, other medicines, foods, dyes, or preservatives or trying to get breast-feeding What should I watch for while using this medicine? Tell your doctor or health resident care spec if your condition does not start to get better or gets worse. You may need to take this medicine for several days as prescribed before your symptoms get better. Finish the full course of tablets prescribed, even if you feel better. Do not smoke cigarettes or drink alcohol. These increase irritation in your stomach and can lengthen the time it will take for ulcers to heal. Cigarettes and alcohol can also make acid reflux or heartburn worse. If you get black, tarry stools or vomit up what looks like coffee grounds, call your doctor or health resident care spec at once. You may have a bleeding ulcer. Prednisone Oral tablet What is this medicine? PREDNISONE (PRED ni sone) is a corticosteroid. It is commonly used to treat inflammation of the skin, joints, lungs, and other organs. Common conditions treated include asthma, allergies, and arthritis. It is also used for other conditions, such as blood disorders and diseases of the adrenal glands. How should I use this medicine? Take this medicine by mouth with a glass of water. Follow the directions on the prescription label. Take this medicine with food. If you are taking this medicine once a day, take it in the morning. Do not take more medicine than you are told to take. Do not suddenly stop taking your medicine because you may develop a severe reaction. Your doctor will tell you how much medicine to take. If your doctor wants you to stop the medicine, the dose may be slowly lowered over time to avoid any side effects. Talk to your housekeeper regarding the use of this medicine in children. Special care may be needed. What side effects may I notice from receiving this medicine? Side effects that you should report to your doctor or health resident care spec as soon as possible: allergic reactions like skin rash, itching or hives, swelling of the face, lips, or tongue changes in emotions or moods changes in vision depressed mood eye pain fever or chills, cough, sore throat, pain or difficulty passing urine increased thirst swelling of ankles, feet Side effects that usually do not require medical attention (report to your doctor or health resident care spec if they continue or are bothersome): confusion, excitement, restlessness headache nausea, vomiting skin problems, acne, thin and shiny skin trouble sleeping weight gain What may interact with this medicine? Do not take this medicine with any of the following medications: metyrapone mifepristone This medicine may also interact with the following medications: aminoglutethimide amphotericin B aspirin and aspirin-like medicines barbiturates certain medicines for diabetes, like glipizide or glyburide cholestyramine cholinesterase inhibitors cyclosporine digoxin diuretics ephedrine female hormones, like estrogens and control pills isoniazid ketoconazole NSAIDS, medicines for pain and inflammation, like ibuprofen or naproxen phenytoin rifampin toxoids vaccines warfarin What if I miss a dose? If you miss a dose, take it as soon as you can. If it is almost time for your next dose, talk to your doctor or health resident care spec. You may need to miss a dose or take an extra dose. Do not take double or extra doses without advice. Where should I keep my medicine? Keep out of the reach of children. Store at room temperature between 15 and 30 degrees C (59 and 86 degrees F). Protect from light. Keep container tightly closed. Throw away any unused medicine after the expiration date. What should I tell my health care provider before I take this medicine? They need to know if you have any of these conditions: Foxburg's syndrome diabetes glaucoma heart disease high blood pressure infection (especially a virus infection such as chickenpox, cold sores, or herpes) kidney disease liver disease mental illness myasthenia gravis osteoporosis seizures stomach or intestine problems thyroid disease an unusual or allergic reaction to lactose, prednisone, other medicines, foods, dyes, or preservatives or trying to get breast-feeding What should I watch for while using this medicine? Visit your doctor or health resident care spec for regular checks on your progress. If you are taking this medicine over a prolonged period, carry an identification card with your name and address, the type and dose of your medicine, and your doctor's name and address. This medicine may increase your risk of getting an infection. Tell your doctor or health resident care spec if you are around anyone with measles or chickenpox, or if you develop sores or blisters that do not heal properly. If you are going to have surgery, tell your doctor or health resident care spec that you have taken this medicine within the last twelve months. Ask your doctor or health resident care spec about your diet. You may need to lower the amount of salt you eat. This medicine may affect blood sugar levels. If you have diabetes, check with your doctor or health resident care spec before you change your diet or the dose of your diabetic medicine. You have been given the following additional information: COPD Flare GERD (Adult) Levofloxacin Oral tablet Ranitidine Hydrochloride Oral tablet Prednisone Oral tablet (Electronically signed by Jacob Romero Dr. 08/18/2016 16:02)
--- NOTE | 2016-08-18 16:16 | ED MAR SUMMARY ---
..... Medication Administration Record [facility] [address] [place] [address] Patient: JOSY WELDON Visit ID: [id number] 76y, F Weight: 86.1 kg Height/Length: 68 in BMI: 28.9 ALLERGIES: Codeine Given 13:55 08/18/2016 Kiley Dixon R.N. Medication Administered: DUONEB [NEB TX] (IPRATROPIUM-ALBUTEROL), Dose: 1 unit dose Nebulizer Neb TX. Medication Ordered: DuoNeb Neb Tx 1 unit dose (NOW). Start 14:24 08/18/2016 Clarence Cummings R.N., Stop 15:44 08/18/2016 Clarence Cummings R.N. Medication Administered: IV NS (SALINE), Dose: IV Fluids over 1 hour(s), Rate: 1000 mL/hr, Dispensed: 1000 mL bag, Site: #1 left forearm. Medication Ordered: IV NS : initial bolus none -, then 1000 mL/hr for X1 (NOW). Given 14:32 08/18/2016 Clarence Cummings R.N. Medication Administered: PREDNISONE [PO], Dose: 40 mg Tablets PO. Medication Ordered: Prednisone PO 40 mg (NOW). Given 15:49 08/18/2016 Clarence Cummings R.N. Medication Administered: LEVAQUIN [PO] (LEVOFLOXACIN), Dose: 500 mg Capsules PO. Medication Ordered: Levaquin PO 500 mg (NOW).
== END 2016-08-18 16:15 | disposition home or self-care (01) ==
LOC: ED SRH 12:19
DX: J44.1 Chronic obstructive pulmonary disease with (acute) exacerbation (principal); K21.0 Gastro-esophageal reflux disease with esophagitis; I10 Essential (primary) hypertension; Z79.899 Other long term (current) drug therapy; Z87.891 Personal history of nicotine dependence; Z88.5 Allergy status to narcotic agent
CPT/HCPCS: 90100; 95059

== ENCOUNTER 2016-08-22 07:23 | Inpatient (IN) | payer OTHER ==
[~2016-08-22] VITALS: Ht 172.7 cm; Wt 79.2 kg
--- NOTE | 2016-08-22 08:57 | DIAGNOSTIC IMAGING REPORT ---
PROCEDURE: XR CHEST 1 VIEW INDICATION: COPD TECHNIQUE: Portable AP view (0835 hours). COMPARISON: Compared to chest x-ray on 08/18/2016. FINDINGS: There is mild linear scarring at the right lung base. Lungs are hyperexpanded, although otherwise clear. Heart and mediastinum are normal. Thorax is normal. IMPRESSION: 1. Chronic obstructive pulmonary disease. 2. Otherwise negative chest.
--- NOTE | 2016-08-22 09:18 | ED CLINICAL REPORT ---
Clinical Report - Physicians/Mid Levels [facility] [address] [place] [address] 08/22/2016 7:25 Patient: JOSY WELDON Arrived- By private vehicle. Historian- patient. HISTORY OF PRESENT ILLNESS Chief Complaint: DYSPNEA. This started Several days ago and is still present and worsening. It was abrupt in onset and has been waxing/waning but is not gone now. The dyspnea is described as moderate. The patient has had a cough. No chest pain or discomfort. See nurses notes for current asthma threapy. Asthma triggers: (COPD triggers. Candles, certain types of leaves, and cedar.). Takes asthma medications, takes medication for COPD. (Takes medication for her COPD). Similar symptoms previously: Many times. Recent medical care: The patient was seen recently in the emergency department. ( recently treated for COPD exacerbation with steroids, breathing treatment, and Levaquin.). REVIEW OF SYSTEMS No sore throat, nasal discharge, fever, chills or nausea. No vomiting. Reports sour taste in the mouth. States she is on antiacid medication which is significantly helping at this point. All systems otherwise negative, except as recorded above. PAST HISTORY See nurses notes. Pulmonary embolism/DVT risk factors: Has not had recent surgery or recent [place]. No history of CHF, cancer or DVT. Not taking estrogens. Is not obese. Medications: Levofloxacin Oral 500 mg, 4 days (short course, completed). PredniSONE Oral 20 mg, 4 days (short course, completed course. ). Venlafaxine HCl Oral 75 mg, daily. Vitamin D Oral. Zymaxid Ophthalmic. Advair Diskus Inhalation. Atenolol Oral 50 mg, 2x a day. Calcium. ClonazePAM Oral 1 mg, 3x a day. Diltiazem ER 180 mg , daily (just recently increased from 120 mg). Levothyroxine Sodium Oral 50 mcg, daily. Lovastatin Oral 40 mg q day. Naproxen Oral 500 mg. Omeprazole Oral. Trazodone 50 mg q HS. Allergies: Codeine. SOCIAL HISTORY Former smoker. No alcohol use or drug use. No recent travel. Is a local resident. ADDITIONAL NOTES The nursing notes have been reviewed. PHYSICAL EXAM Vital Signs: 08/22/2016 07:33 BP: 107/62. HR: 73. RR: 22. O2 saturation: 92%. Temp: 97.4 F. Blood pressure normal. Oxygen saturation normal. Appearance: Alert. Patient in mild distress. Eyes: Pupils equal, round and reactive to light. Eyes normal inspection. ENT: Ears normal. Nose normal. Pharynx normal. Uvula midline. Neck: Normal inspection. Neck supple. CVS: Normal heart rate and rhythm. Heart sounds normal. Pulses normal. Respiratory: Mild respiratory distress. Retractions. Accessory muscle use. Prolonged expirations. Decreased air movement. Wheezing present. No stridor or rales. Abdomen: Soft and nontender. Back: Normal inspection. Skin: Skin warm and dry. Normal skin color. No rash. Normal skin turgor. Extremities: Extremities exhibit normal ROM. No lower extremity edema. Neuro: Oriented X 3. No motor deficit. No sensory deficit. LABS, X-RAYS, AND EKG Laboratory Tests: CBC w Diff: (BRANDON: 08/22/2016 08:00) ( MsgRcvd 08/22/2016 08:18) Final results Test Result Flag Units (Reference) WHITE BLOOD COUNT 8.7 K/uL (4.5-11.5) RED BLOOD COUNT 4.95 M/uL (4.00-5.20) HEMOGLOBIN 15.3 gm/dL (12.0-16.0) HEMATOCRIT 46.6 H % (36.0-46.0) MEAN CELL VOLUME 94 fL (80-100) MEAN CORPUSCULAR HGB 31 pg (26-34) MEAN CORPUSCULAR HGB CONC 33 g/dL (31-37) RED CELL DISTRIBUTION WIDTH 14.3 % (11.6-14.8) PLATELET COUNT 196 K/uL (150-400) NEUTROPHIL % 62.1 % (50-75) LYMPH % 25.8 % (25-40) MONO % 11.1 % (3-14) EOSINOPHIL % 0.5 % (0-4) BASOPHIL % 0.5 % (0-2) [id number]: (BRANDON: 08/22/2016 08:00) ( [facility] 08/22/2016 11:22) Final results Test Result Flag Units (Reference) D-DIMER QUANTITATIVE 1.11 H ug/mLFEU (0.27-0.52) The primary value of this quantitative assay relates toits negative predictive value (i.e. exclusion) of pulmonaryembolism/deep vein thrombosis/DIC.Elevated levels of d-dimer may also occur with:, age, cancer, inflammation, liver disease,post-op, infection, hematoma, coronary disease, peripheralarteriopathy, bleeding disorders and thrombolytic treatment.Results should be correlated with other clinical andradiological data.Testing Methodology: Latex Immunoassay BNP: (BRANDON: 08/22/2016 08:00) ( [facility] 08/22/2016 11:29) Final results Test Result Flag Units (Reference) B-TYPE NATRIURETIC PEPTIDE 21.6 pg/ml (5-100) [id number]: (BRANDON: 08/22/2016 11:40) ( [facility] 08/22/2016 12:22) Final results Test Result Flag Units (Reference) LACTIC ACID SEPSIS PROTOCOL 1.3 mmol/L (0.4-2.0) [id number]: (BRANDON: 08/22/2016 08:00) ( [facility] 08/22/2016 11:46) Final results Test Result Flag Units (Reference) PROCALCITONIN <0.5 ng/mL (0-0.5) PCT Concentration: Interpretation : Risk/option for action PCT <=0.5 ng/mL : Systemic : Low risk forinfection(sepsis): progression to severeis not likely. : systemic infection.Local bacterial : CAUTION-PCT levelsinfection is : below 0.5 ng/mL do notpossible. : exclude an infection,because localizedinfections (withoutsystemic signs) may beassociated with suchlow levels. If PCT ismeasured very earlyafter a bacterialchallenge (usually <6hours), these valuesmay still be low. Inthis case PCT shouldbe re-assessed 6-24hours later. PCT >0.5 and : Systemic infection: Moderate risk for<= 2 ng/mL : (sepsis) is : progression to severepossible, but : systemic infection.other conditions : The patient should beare known to : closely monitoredelevate PCT. : both clinically andby re-assessing PCTwithin 6-24 hours. PCT > 2 ng/mL : Systemic infection: High risk for(sepsis) is likely: progression to severeunless other : systemic infection.causes are known. : PCT >= 10 ng/mL : Important systemic: High likelihood ofinflammatory : severe sepsis orresponse, almost : septic shock.exclusively due to:severe bacterial :sepsis or septic :shock. : CMP: (BRANDON: 08/22/2016 08:00) ( MsgRcvd 08/22/2016 08:26) Final results Test Result Flag Units (Reference) GLUCOSE 100 mg/dL (70-110) BUN 30 H mg/dL (7-18) CREATININE 1.3 mg/dL (0.6-1.3) Estimated GFR 42.33 mL/min Estimated GFR- 51.30 mL/min Note: Persistent reduction over 3 months in eGFR<60 mL/min/1.73 m2 defines CKD. Patients with eGFR values>=60 mL/min/1.73 m2 may also have CKD if evidence ofpersistent proteinuria. Additional information may be foundat www.kidney.org. SODIUM 142 mmol/L (136-145) POTASSIUM 3.1 L mmol/L (3.5-5.1) CHLORIDE 101 mmol/L (98-107) CARBON DIOXIDE 33 H mmol/L (21-32) CALCIUM 8.8 mg/dL (8.5-10.1) TOTAL PROTEIN 7.3 g/dL (6.4-8.2) ALBUMIN 3.9 g/dL (3.3-5.0) BILIRUBIN, TOTAL 0.5 mg/dL (0.0-1.0) ALKALINE PHOSPHATASE 56 U/L (46-116) AST (SGOT) 22 U/L (15-37) ALT (SGPT) 39 U/L (12-78) ABG: (BRANDON: 08/22/2016 12:06) ( MsgRcvd 08/22/2016 12:30) Final results Test Result Flag Units (Reference) FIO2 0.28 L % (20-101) ABG MODE OF DELIVERY NC MODIFIED ROSIE TEST POSITIVE? YES LITERS PER MIN. 2 L/MIN (0-20) ABG PATIENT RESP RATE 20 /MIN ARTERIAL BLOOD GAS SITE LR ARTERIAL BLOOD GAS pH 7.43 (7.35-7.45) ABG PCO2 44.3 mmHg (35-45) ABG PO2 61.1 mmHg (60.0-80.0) ABG BASE EXCESS 4.6 H mmol/L (-6.0--6.0) ABG HCO3 29.5 H mmol/L (20.0-26.0) ABG TCO2 30.8 H mmol/L (24.0-30.0) ABG FcLyM1o 0.0 L mmHg (7.0-14.0) *NOTE: Normal rangeis based on aFIO2 of 21% ABG SAT O2 90.6 L % (95.1-100.0) ABG TOTAL HEMOGLOBIN 14.5 g/dL (12.0-16.0) ABG O2 HEMOGLOBIN 89.0 L % (95.0-100.0) ABG CARBOXYHEMOGLOBIN 1.4 % (0.5-1.5) ABG METHEMOGLOBIN 0.4 % (0.4-1.5) ABG RHEMOGLOBIN 9.2 % Rapid Influenza Screen: (BRANDON: 08/22/2016 11:45) ( MsgRcvd 08/22/2016 13:13) Final results SPECIMEN DESCRIPTION: NASAL Test Result Flag Units (Reference) RAPID INFLUENZA SCREEN DATE: 08/22/16 INFLUENZA A: NEGATIVE SCREEN FOR INFLUENZA A INFLUENZA B: NEGATIVE SCREEN FOR INFLUENZA B . PROGRESS AND PROCEDURES Course of Care: the patient is a pleasant 76 her old female with history of COPD presenting free without shortness of breath. He has been recently treated for COPD exacerbation. Patient states that this feels exactly the same as her other COPD he last several doses of her prednisone and Levaquin. Workup ordered for evaluation of patient's difficulty breathing. At this time working diagnosis is COPD exacerbation. Patient otherwise is nontoxic on examination. Vital signs are unremarkable. Patient is agreeable to the treatment and plan. Discussed case with hospitalist, (14:[address] Hernandez. Will evaluate the pt in the ED. discussed the fact that radiology recommended fluid replacement due to renal fxn prior to CTA if deemed appropriate.). Disposition: Condition: stable. CLINICAL IMPRESSION Acute exacerbation of COPD. Moderate chronic renal insufficiency. Hypoxia. (Electronically signed by Jacob Romero Dr. 08/22/2016 22:44)
--- NOTE | 2016-08-22 09:18 | ED CLINICAL REPORT ---
Clinical Report - Physicians/Mid Levels [facility] [address] [place] [address] 08/22/2016 7:25 Patient: JOSY WELDON Arrived- By private vehicle. Historian- patient. HISTORY OF PRESENT ILLNESS Chief Complaint: DYSPNEA. This started Several days ago and is still present and worsening. It was abrupt in onset and has been waxing/waning but is not gone now. The dyspnea is described as moderate. The patient has had a cough. No chest pain or discomfort. See nurses notes for current asthma threapy. Asthma triggers: (COPD triggers. Candles, certain types of leaves, and cedar.). Takes asthma medications, takes medication for COPD. (Takes medication for her COPD). Similar symptoms previously: Many times. Recent medical care: The patient was seen recently in the emergency department. ( recently treated for COPD exacerbation with steroids, breathing treatment, and Levaquin.). REVIEW OF SYSTEMS No sore throat, nasal discharge, fever, chills or nausea. No vomiting. Reports sour taste in the mouth. States she is on antiacid medication which is significantly helping at this point. All systems otherwise negative, except as recorded above. PAST HISTORY See nurses notes. Pulmonary embolism/DVT risk factors: Has not had recent surgery or recent [place]. No history of CHF, cancer or DVT. Not taking estrogens. Is not obese. Medications: Levofloxacin Oral 500 mg, 4 days (short course, completed). PredniSONE Oral 20 mg, 4 days (short course, completed course. ). Venlafaxine HCl Oral 75 mg, daily. Vitamin D Oral. Zymaxid Ophthalmic. Advair Diskus Inhalation. Atenolol Oral 50 mg, 2x a day. Calcium. ClonazePAM Oral 1 mg, 3x a day. Diltiazem ER 180 mg , daily (just recently increased from 120 mg). Levothyroxine Sodium Oral 50 mcg, daily. Lovastatin Oral 40 mg q day. Naproxen Oral 500 mg. Omeprazole Oral. Trazodone 50 mg q HS. Allergies: Codeine. SOCIAL HISTORY Former smoker. No alcohol use or drug use. No recent travel. Is a local resident. ADDITIONAL NOTES The nursing notes have been reviewed. PHYSICAL EXAM Vital Signs: 08/22/2016 07:33 BP: 107/62. HR: 73. RR: 22. O2 saturation: 92%. Temp: 97.4 F. Blood pressure normal. Oxygen saturation normal. Appearance: Alert. Patient in mild distress. Eyes: Pupils equal, round and reactive to light. Eyes normal inspection. ENT: Ears normal. Nose normal. Pharynx normal. Uvula midline. Neck: Normal inspection. Neck supple. CVS: Normal heart rate and rhythm. Heart sounds normal. Pulses normal. Respiratory: Mild respiratory distress. Retractions. Accessory muscle use. Prolonged expirations. Decreased air movement. Wheezing present. No stridor or rales. Abdomen: Soft and nontender. Back: Normal inspection. Skin: Skin warm and dry. Normal skin color. No rash. Normal skin turgor. Extremities: Extremities exhibit normal ROM. No lower extremity edema. Neuro: Oriented X 3. No motor deficit. No sensory deficit. LABS, X-RAYS, AND EKG Laboratory Tests: CBC w Diff: (BRANDON: 08/22/2016 08:00) ( MsgRcvd 08/22/2016 08:18) Final results Test Result Flag Units (Reference) WHITE BLOOD COUNT 8.7 K/uL (4.5-11.5) RED BLOOD COUNT 4.95 M/uL (4.00-5.20) HEMOGLOBIN 15.3 gm/dL (12.0-16.0) HEMATOCRIT 46.6 H % (36.0-46.0) MEAN CELL VOLUME 94 fL (80-100) MEAN CORPUSCULAR HGB 31 pg (26-34) MEAN CORPUSCULAR HGB CONC 33 g/dL (31-37) RED CELL DISTRIBUTION WIDTH 14.3 % (11.6-14.8) PLATELET COUNT 196 K/uL (150-400) NEUTROPHIL % 62.1 % (50-75) LYMPH % 25.8 % (25-40) MONO % 11.1 % (3-14) EOSINOPHIL % 0.5 % (0-4) BASOPHIL % 0.5 % (0-2) [id number]: (BRANDON: 08/22/2016 08:00) ( [facility] 08/22/2016 11:22) Final results Test Result Flag Units (Reference) D-DIMER QUANTITATIVE 1.11 H ug/mLFEU (0.27-0.52) The primary value of this quantitative assay relates toits negative predictive value (i.e. exclusion) of pulmonaryembolism/deep vein thrombosis/DIC.Elevated levels of d-dimer may also occur with:, age, cancer, inflammation, liver disease,post-op, infection, hematoma, coronary disease, peripheralarteriopathy, bleeding disorders and thrombolytic treatment.Results should be correlated with other clinical andradiological data.Testing Methodology: Latex Immunoassay BNP: (BRANDON: 08/22/2016 08:00) ( [facility] 08/22/2016 11:29) Final results Test Result Flag Units (Reference) B-TYPE NATRIURETIC PEPTIDE 21.6 pg/ml (5-100) [id number]: (BRANDON: 08/22/2016 11:40) ( [facility] 08/22/2016 12:22) Final results Test Result Flag Units (Reference) LACTIC ACID SEPSIS PROTOCOL 1.3 mmol/L (0.4-2.0) [id number]: (BRANDON: 08/22/2016 08:00) ( [facility] 08/22/2016 11:46) Final results Test Result Flag Units (Reference) PROCALCITONIN <0.5 ng/mL (0-0.5) PCT Concentration: Interpretation : Risk/option for action PCT <=0.5 ng/mL : Systemic : Low risk forinfection(sepsis): progression to severeis not likely. : systemic infection.Local bacterial : CAUTION-PCT levelsinfection is : below 0.5 ng/mL do notpossible. : exclude an infection,because localizedinfections (withoutsystemic signs) may beassociated with suchlow levels. If PCT ismeasured very earlyafter a bacterialchallenge (usually <6hours), these valuesmay still be low. Inthis case PCT shouldbe re-assessed 6-24hours later. PCT >0.5 and : Systemic infection: Moderate risk for<= 2 ng/mL : (sepsis) is : progression to severepossible, but : systemic infection.other conditions : The patient should beare known to : closely monitoredelevate PCT. : both clinically andby re-assessing PCTwithin 6-24 hours. PCT > 2 ng/mL : Systemic infection: High risk for(sepsis) is likely: progression to severeunless other : systemic infection.causes are known. : PCT >= 10 ng/mL : Important systemic: High likelihood ofinflammatory : severe sepsis orresponse, almost : septic shock.exclusively due to:severe bacterial :sepsis or septic :shock. : CMP: (BRANDON: 08/22/2016 08:00) ( MsgRcvd 08/22/2016 08:26) Final results Test Result Flag Units (Reference) GLUCOSE 100 mg/dL (70-110) BUN 30 H mg/dL (7-18) CREATININE 1.3 mg/dL (0.6-1.3) Estimated GFR 42.33 mL/min Estimated GFR- 51.30 mL/min Note: Persistent reduction over 3 months in eGFR<60 mL/min/1.73 m2 defines CKD. Patients with eGFR values>=60 mL/min/1.73 m2 may also have CKD if evidence ofpersistent proteinuria. Additional information may be foundat www.kidney.org. SODIUM 142 mmol/L (136-145) POTASSIUM 3.1 L mmol/L (3.5-5.1) CHLORIDE 101 mmol/L (98-107) CARBON DIOXIDE 33 H mmol/L (21-32) CALCIUM 8.8 mg/dL (8.5-10.1) TOTAL PROTEIN 7.3 g/dL (6.4-8.2) ALBUMIN 3.9 g/dL (3.3-5.0) BILIRUBIN, TOTAL 0.5 mg/dL (0.0-1.0) ALKALINE PHOSPHATASE 56 U/L (46-116) AST (SGOT) 22 U/L (15-37) ALT (SGPT) 39 U/L (12-78) ABG: (BRANDON: 08/22/2016 12:06) ( MsgRcvd 08/22/2016 12:30) Final results Test Result Flag Units (Reference) FIO2 0.28 L % (20-101) ABG MODE OF DELIVERY NC MODIFIED ROSIE TEST POSITIVE? YES LITERS PER MIN. 2 L/MIN (0-20) ABG PATIENT RESP RATE 20 /MIN ARTERIAL BLOOD GAS SITE LR ARTERIAL BLOOD GAS pH 7.43 (7.35-7.45) ABG PCO2 44.3 mmHg (35-45) ABG PO2 61.1 mmHg (60.0-80.0) ABG BASE EXCESS 4.6 H mmol/L (-6.0--6.0) ABG HCO3 29.5 H mmol/L (20.0-26.0) ABG TCO2 30.8 H mmol/L (24.0-30.0) ABG TwAgI9f 0.0 L mmHg (7.0-14.0) *NOTE: Normal rangeis based on aFIO2 of 21% ABG SAT O2 90.6 L % (95.1-100.0) ABG TOTAL HEMOGLOBIN 14.5 g/dL (12.0-16.0) ABG O2 HEMOGLOBIN 89.0 L % (95.0-100.0) ABG CARBOXYHEMOGLOBIN 1.4 % (0.5-1.5) ABG METHEMOGLOBIN 0.4 % (0.4-1.5) ABG RHEMOGLOBIN 9.2 % Rapid Influenza Screen: (BRANDON: 08/22/2016 11:45) ( MsgRcvd 08/22/2016 13:13) Final results SPECIMEN DESCRIPTION: NASAL Test Result Flag Units (Reference) RAPID INFLUENZA SCREEN DATE: 08/22/16 INFLUENZA A: NEGATIVE SCREEN FOR INFLUENZA A INFLUENZA B: NEGATIVE SCREEN FOR INFLUENZA B . PROGRESS AND PROCEDURES Course of Care: the patient is a pleasant 76 her old female with history of COPD presenting free without shortness of breath. He has been recently treated for COPD exacerbation. Patient states that this feels exactly the same as her other COPD he last several doses of her prednisone and Levaquin. Workup ordered for evaluation of patient's difficulty breathing. At this time working diagnosis is COPD exacerbation. Patient otherwise is nontoxic on examination. Vital signs are unremarkable. Patient is agreeable to the treatment and plan. Discussed case with hospitalist, (14:[address] Hernandez. Will evaluate the pt in the ED. discussed the fact that radiology recommended fluid replacement due to renal fxn prior to CTA if deemed appropriate.). Disposition: Condition: stable. CLINICAL IMPRESSION Acute exacerbation of COPD. Moderate chronic renal insufficiency. Hypoxia. (Electronically signed by Jacob Romero Dr. 08/22/2016 22:44)
--- NOTE | 2016-08-22 09:18 | ED ORDER SUMMARY ---
..... Patient: JOSY WELDON OrderSheet [facility] VisitID: [id number] [address] [place] [address] 76y, F Registration Date/Time: 08/22/2016 ORDER SHEET Weight: 81.6 kg (stated) Allergies: Codeine GENERAL ORDERS: Chest 1V Urgent (07:52 08/22/2016 Mily Hope) (Ack 8:00 Swati) (9:08 MWinterer R.N.) Inspector Exhaust Emissions (Continuous) (Respiratory Distress) (07:53 08/22/2016 Mily Hope) (7:58 SBalde R.N.) (Ack 8:00 Swati) CBC w Diff Urgent (:53 08/22/2016 Mily Hope) (Ack 8:00 Swati) (8:05 EHassan R.N.) CMP Urgent (07:53 08/22/2016 Mily Hope) (Ack 8:00 Baudiliouga) (8:05 EHassan R.N.) Pulse oximeter (07:53 08/22/2016 Mily Hope) (7:58 SBalde R.N.) (Ack 8:00 DIANNAaruga) Oxygen (2 L/min) (NC) (07:53 08/22/2016 Mily Hope) (7:58 SBalde R.N.) (Ack 8:00 Baudiliouga) EKG - ER Stat (07:53 08/22/2016 Mily Hope) (Ack 8:00 Baudiliouga) (8:12 EHassan R.N.) Blood Culture (Yes) (Levofloxacin) Urgent (11:03 08/22/2016 Kvng Hope) (Ack 11:07 LTapper) (11:47 EHassan R.N.) Lactic Acid for Sepsis Protocol Urgent (11:04 08/22/2016 Kvng Hope) (Ack 11:07 LTapper) (11:33 EHassan R.N.) PCT (Procalcitonin) Urgent (11:04 08/22/2016 Kvng Hope) (Ack 11:07 LTapper) (11:33 EHassan R.N.) BNP Urgent (11:04 08/22/2016 Kvng Hope) (Ack 11:07 LTapper) (11:33 EHassan R.N.) D-Dimer Urgent (11:04 08/22/2016 Kvng Hope) (Ack 11:07 LTapper) (11:33 Irenen R.N.) ABG (G) Urgent (12:06 08/22/2016 Kvng Hope) (Ack 12:07 LTapper) (12:50 SBalde R.N.) Rapid Influenza Screen (Nasal Pharyngeal) (nasal) Urgent (12:47 08/22/2016 SBalde R.N. per protocol) (Ack 12:51 LTapper) (12:55 EHassan R.N.) MEDICATION ORDERS: DuoNeb Neb Tx 1 unit dose (NOW) (07:53 08/22/2016 Mily Hope) (7:58 Manuel R.N.) Albuterol Neb Tx 7.5 mg (NOW) (09:34 08/22/2016 Mily Hope) (9:51 JZiglar) DuoNeb Neb Tx 1 unit dose (NOW) (14:48 08/22/2016 Kvng Hope) (16:06 Chantal) Tylenol PO 650 mg (NOW) (15:50 08/22/2016 Dulce R.NShannan verbal order read back to Kvng Hope) (15:51 Dulce R.N.) IV FLUIDS: IV Saline Lock (07:53 08/22/2016 Mily Hope) (8:06 Dulce R.N.) Solu-MEDROL IV 125 mg (NOW) (09:35 08/22/2016 Mily Hope) (Ack 10:06 MWinterer R.N.) (10:14 MWinterer R.N.) Magnesium Sulfate IV 2 gm/50mL (HIGH ALERT MEDICATION, NOW) (11:04 08/22/2016 Kvng Hope) (Ack 11:26 SBalde R.N.) (11:48 SBalde R.N.) Rocephin IV 1 gm/50mL (NOW) (13:44 08/22/2016 Kvng Hope) (14:45 Manuel Russo) ORDER SHEET NOTES: [Electronically signed by Bekah Baldwin R.N. (16:19 08/22/2016)] [Electronically signed by Jacob Romero Dr. (22:44 08/22/2016)] [Electronically locked/signed by Bekah Baldwin R.N. (16:19 08/22/2016)]
--- NOTE | 2016-08-22 09:18 | ED ORDER SUMMARY ---
..... Patient: JOSY WELDON OrderSheet [facility] VisitID: [id number] [address] [place] [address] 76y, F Registration Date/Time: 08/22/2016 ORDER SHEET Weight: 81.6 kg (stated) Allergies: Codeine GENERAL ORDERS: Chest 1V Urgent (07:52 08/22/2016 Mily Hope) (Ack 8:00 Swati) (9:08 MWinterer R.N.) Forming Yardage Control Operator (Continuous) (Respiratory Distress) (07:53 08/22/2016 Mily Hope) (7:58 SBalde R.N.) (Ack 8:00 Swati) CBC w Diff Urgent (:53 08/22/2016 Mily Hope) (Ack 8:00 Swati) (8:05 EHassan R.N.) CMP Urgent (07:53 08/22/2016 Mily Hope) (Ack 8:00 Baudiliouga) (8:05 EHassan R.N.) Pulse oximeter (07:53 08/22/2016 Mily Hope) (7:58 SBalde R.N.) (Ack 8:00 DIANNAaruga) Oxygen (2 L/min) (NC) (07:53 08/22/2016 Mily Hope) (7:58 SBalde R.N.) (Ack 8:00 Baudiliouga) EKG - ER Stat (07:53 08/22/2016 Mily Hope) (Ack 8:00 Baudiliouga) (8:12 EHassan R.N.) Blood Culture (Yes) (Levofloxacin) Urgent (11:03 08/22/2016 Kvng Hope) (Ack 11:07 LTapper) (11:47 EHassan R.N.) Lactic Acid for Sepsis Protocol Urgent (11:04 08/22/2016 Kvng Hope) (Ack 11:07 LTapper) (11:33 EHassan R.N.) PCT (Procalcitonin) Urgent (11:04 08/22/2016 Kvng Hope) (Ack 11:07 LTapper) (11:33 EHassan R.N.) BNP Urgent (11:04 08/22/2016 Kvng Hope) (Ack 11:07 LTapper) (11:33 EHassan R.N.) D-Dimer Urgent (11:04 08/22/2016 Kvng Hope) (Ack 11:07 LTapper) (11:33 Irenen R.N.) ABG (G) Urgent (12:06 08/22/2016 Kvng Hope) (Ack 12:07 LTapper) (12:50 SBalde R.N.) Rapid Influenza Screen (Nasal Pharyngeal) (nasal) Urgent (12:47 08/22/2016 SBalde R.N. per protocol) (Ack 12:51 LTapper) (12:55 EHassan R.N.) MEDICATION ORDERS: DuoNeb Neb Tx 1 unit dose (NOW) (07:53 08/22/2016 Mily Hope) (7:58 Manuel R.N.) Albuterol Neb Tx 7.5 mg (NOW) (09:34 08/22/2016 Mily Hope) (9:51 JZiglar) DuoNeb Neb Tx 1 unit dose (NOW) (14:48 08/22/2016 Kvng Hope) (16:06 Chantal) Tylenol PO 650 mg (NOW) (15:50 08/22/2016 Dulce R.NShannan verbal order read back to Kvng Hope) (15:51 Dulce R.N.) IV FLUIDS: IV Saline Lock (07:53 08/22/2016 Mily Hope) (8:06 Dulce R.N.) Solu-MEDROL IV 125 mg (NOW) (09:35 08/22/2016 Mily Hope) (Ack 10:06 MWinterer R.N.) (10:14 MWinterer R.N.) Magnesium Sulfate IV 2 gm/50mL (HIGH ALERT MEDICATION, NOW) (11:04 08/22/2016 Kvng Hope) (Ack 11:26 SBalde R.N.) (11:48 SBalde R.N.) Rocephin IV 1 gm/50mL (NOW) (13:44 08/22/2016 Kvng Hope) (14:45 Manuel Russo) ORDER SHEET NOTES: [Electronically signed by Bekah Baldwin R.N. (16:19 08/22/2016)] [Electronically signed by Jacob Romero Dr. (22:44 08/22/2016)] [Electronically locked/signed by Bekah Baldwin R.N. (16:19 08/22/2016)]
--- NOTE | 2016-08-22 09:18 | ED NURSING NOTES ---
Clinical Report - Nurses Formerly [facility] [address] [place] [address] 08/22/2016 7:25 Patient: JOSY WELDON TRIAGE Triage time 07:33 Aug 22 2016. Acuity: LEVEL 2. Chief Complaint: SHORTNESS OF BREATH and DIFFICULTY BREATHING. Alert. No acute distress. (anxious). ( pt's oxygen on room air). --07:37 Nichole Perez R.N. 07:33 08/22/16. BP: 107/62. HR: 73. RR: 22. O2 saturation: 92%. Temp: 97.4 F. --07:37 Nichole Perez R.N. Weight: 81.6 kg stated. Height/Length: 64 inches Per Patient. BMI: 30.9. --07:32 Nichole Perez R.N. Medications Advair Diskus Inhalation. Atenolol Oral 50 mg, 2x a day. Calcium. ClonazePAM Oral 1 mg, 3x a day. Diltiazem ER 180 mg , daily (just recently increased from 120 mg). Levothyroxine Sodium Oral 50 mcg, daily. Lovastatin Oral 40 mg q day. Naproxen Oral 500 mg. Omeprazole Oral. Trazodone 50 mg q HS. --07:34 Nichole Perez R.N. Venlafaxine HCl Oral 75 mg, daily. Vitamin D Oral. Zymaxid Ophthalmic. --07:34 Nichole ePrez R.N. PredniSONE Oral 20 mg, 4 days (short course, completed course. ). --07:38 Nichole Perez R.N. Levofloxacin Oral 500 mg, 4 days (short course, completed). --07:39 Nichole Perez R.N. Medication/allergy information source: the patient and patient's family. --07:37 Nichole Perez R.N. Allergies Codeine. --07:34 Nichole Perez R.N. History Arrived by private vehicle. Historian: patient. Primary physician (Dr. Valencia). ( Was seen here on 08/18/16 for same c/o. Was put on Prednisone and a ABX. Went home. On 08/20/16, EMS came to the house and gave her a breathing treatment. Pt stayed home. Crisis resolved. Now returns to the ER for same c/o dyspnea, cough.). This is a recurrent problem. She has had a cough. Treatment BUSINESS AND FINANCIAL COUNSEL: None. PAST MEDICAL HX: Immunizations: has received pneumonia vaccine; seasonal influenza. SOCIAL HX: Former smoker. NUTRITIONAL RISK ASSESSMENT: The nutritional risk assessment revealed no deficiencies. FUNCTIONAL ASSESSMENT: Functional assessment: no impairments noted. LEARNING NEEDS ASSESSMENT: The learning needs assessment revealed no barriers. SKIN INTEGRITY ASSESSMENT: Skin integrity risk assessment completed. No skin integrity risk identified. --07:37 Nichole Perez R.N. PROBLEMS: Lewey Body Dementia. Dizziness. Inner Ear Problems. Abdominal Pain. Gastritis. Peptic Ulcer Disease. COPD - Chronic Obstructive Pulmonary Disease. Asthma. Depression. Anxiety Reaction. Osteoporosis. Osteoarthritis of Knee. Osteoarthritis of Finger Joint. Arthritis back . Osteoporosis. Migraine Headache. Cataracts. Thyroid Disease. Hypertension. Hypercholesterolemia. Skin Cancer. Gastroesophageal Reflux Disease. Macular Degeneration. --07:34 Nichole Perez R.N. TIA - Transient Ischemic Attack [RuleOut]. --07:34 Nichole Perez R.N. ADDITIONAL SURGERIES: Bladder Suspension. Carpal Tunnel Surgery. Endoscopy. Hysterectomy. Tubal Ligation. --07:34 Nichole Perez R.N. Interventions ID band on patient. To room. --07:37 Nichole Perez R.N. PHYSICAL ASSESSMENT 07:50 AM late entry -. To room via wheelchair. GENERAL / NEURO / PSYCH: Alert. Oriented X 4. Appears in no acute distress. HEENT: Mucous membranes are pink. RESPIRATORY: Moderate respiratory distress. The patient can speak in full sentences. Cough productive of scant amounts of yellow sputum. Expiratory and inspiratory bilateral wheezes posteriorly and in the bases. CVS: Normal sinus rhythm noted. Capillary refill less than 2 seconds and is greater than 2 seconds. GI / : Abdomen soft and nontender. Bowel sounds within normal limits. SKIN: Skin is warm and dry. Normal skin turgor. --08:08 Bekah Baldwin R.N. NURSING PROGRESS NOTES Patient ready for evaluation- chart flagged. --07:40 Nichole Perez R.N. risk engineer and pulse oximeter placed on patient; legal director- Lead II; monitor alarms on. Reassurance given. Patient identifiers checked. Call light placed in reach. Side rails up x 2. Bed placed in lowest position. Brakes of bed on. --07:40 Nichole Perez R.N. Head of bed elevated. --07:40 Nichole Perez R.N. 07:58 08/22/2016 Duoneb (Ipratropium-Albuterol) Neb TX 1 unit dose given. Given by the respiratory therapist. Allergies verified and confirmed 5 rights. --07:58 Nichole Perez R.N. 08:05 08/22/2016 Site #1 started via IV in the left upper arm with an 20g angiocath; one attempt. Blood drawn: rainbow set. Labeled in the presence of the patient and sent to the lab. Saline lock flushed with 10 mL saline. --08:05 Bekah Baldwin R.N. Cardiac rhythm: normal sinus rhythm. The initial plan of care for this patient has been created This plan of care was discussed with the patient and family. Oxygen administered. Monitoring of patient in place. EKG time: (0810 AM). Patient ID band checked for patient name, birthdate and medical record number: family confirmed. Blood samples drawn from the left antecubital space peripheral IV site by nurse per protocol ; labeled in presence of the patient and sent to lab: rainbow set. Patient gowned and gowned. Warming measures: blanket applied. Reassurance given and given. Reassessment after intervention and medication administered (DuoNeb). She has had no adverse reaction. Overall patient status is improved- she states feels the same. RESPIRATORY: Expiratory and inspiratory bilateral wheezes posteriorly and in the bases. SKIN: Skin is warm. Skin color within normal limits. Two patient identifiers checked. Call light placed in reach. Side rails up x 1. Bed placed in lowest position. Brakes of bed on. Brakes of chair on. --08:12 Bekah Baldwin R.N. 08:00 08/22/16. BP: 107/62 (regular adult cuff) taken on the left arm, via an automated monitor, while lying. HR: 76. RR: 20. O2 saturation: 94% on nasal cannula at 2 liters/minute. O2 started via nasal cannula. Pain level now: 0/10. --08:12 Bekah Baldwin R.N. EKG time: (08:22 AM). EKG was performed by a tech and shown to the ED physician. --08:30 Luz Maynard 09:51 08/22/2016 Albuterol Neb TX Nebulizer 1 unit dose given. Given by the respiratory therapist. Allergies verified and confirmed 5 rights. Tony Bourgeois --09:51 Tony Bourgeois 10:14 08/22/2016 SOLU-MEDROL (MethylPREDNISolone Sodium Succ) IVP 125 mg given over 2 minute(s) via site #1. Allergies verified and confirmed 5 rights. IV patency established. IV site checked: no pain, redness, or swelling. IV flushed thoroughly pre- and post-medication administration. IVP given by RN. --10:14 Silvana Antonio R.N. 10:00 08/22/16. BP: 134/64 (regular adult cuff) taken on the left arm, via an automated monitor, while lying. HR: 68 (regular). RR: 18. O2 saturation: 94% at 2 liters/minute. O2 started via nasal cannula. Pain level now: 0/10. --10:45 Bekah Baldwin R.N. late entry - 10:00 AM. Cardiac rhythm: normal sinus rhythm. Oxygen administered. Monitoring of patient in place. Reassurance given. The patient is calm and resting quietly. Overall patient status is improved- she states feels better. RESPIRATORY: No respiratory distress. Expiratory bilateral wheezes posteriorly and wheezes in the right and left upper lung posteriorly. CVS: Denies chest pain. Cardiac rhythm: normal sinus rhythm. SKIN: Skin is warm. Two patient identifiers checked. Call light placed in reach. Side rails up x 1. Brakes of bed on. Brakes of chair on. --10:45 Bekah Baldwin R.N. 09 AM late entry -. Cardiac rhythm: normal sinus rhythm. --10:46 Bekah Baldwin R.N. 09:00 01/15/17. BP: 106/72 (regular adult cuff) taken on the left arm, via an automated monitor, while lying. HR: 66 (regular). RR: 18. O2 saturation: 91% at 2 liters/minute. O2 started via nasal cannula. Pain level now: 0/10. --10:46 Bekah Baldwin R.N. 11:48 08/22/2016 Magnesium Sulfate (Magnesium Sulfate in D5W) IVP 2 gm given over 1 hour(s) via site #1. IV patency established. IV site checked: no pain, redness, or swelling. IV flushed thoroughly pre- and post-medication administration. --11:48 Nichole Perez R.N. Blood samples drawn by lab per protocol: kramer top; blood culture (1st set). --11:50 Nichole Perez R.N. Blood samples drawn: blood culture (2nd set). --11:50 Nichole Perez R.N. Informed about reason for wait and about plan of care. --13:46 Nichole Perez R.N. 13:45 08/22/16. BP: 110/81. HR: 86. RR: 22. O2 saturation: 93%. Pain level now 0/10. --13:46 Nichole Perez R.N. ( Dr. Romero in room speaking with pt, plan for admission.). --13:46 Nichole Perez R.N. 14:45 08/22/2016 Started 2 gm of Rocephin (CefTRIAXone Sodium) IVPB in bag #1 50 mL; at 100 mL/hr over 30 minute(s) via site #1 via IV pump. Completed per protocol. --14:45 Nichole Perez R.N. ( Hospitalist here seeing pt.). --14:47 Nichole Perez R.N. 15:51 08/22/2016 Tylenol (Acetaminophen) PO Tablets 650 mg given. Allergies verified and confirmed 5 rights. --15:51 Bekah Baldwin R.N. 00:51 08/22/16. BP: 133/67. HR: 90. RR: 26. O2 saturation: 93% at 2 liters/minute. O2 started via nasal cannula. --15:53 Bekah Baldwin R.N. late entry -15:00 PM. Cardiac rhythm: normal sinus rhythm. Reassurance given. The patient is calm and resting quietly. Overall patient status is improved- she states feels better. RESPIRATORY: Respiratory distress present. Expiratory bilateral wheezes in the bases. CVS: Denies chest pain. SKIN: Skin is warm. Skin color within normal limits. Patient identifiers checked. Call light placed in reach. Side rails up x 1. Bed placed in lowest position. Brakes of bed on. Brakes of chair on. --15:53 Bekah Baldwin R.N. 15:56 08/22/16. BP: 119/79 (regular adult cuff) taken on the left arm, via an automated monitor, while sitting. HR: 81. RR: 24. O2 saturation: 93% at 2 liters/minute. O2 started via nasal cannula. Temp: 97.5 F (oral). --16:00 Bekah Baldwin R.N. Cardiac rhythm: normal sinus rhythm. Patient ID band checked for patient name, birthdate and medical record number: patient confirmed. Blood samples drawn with Vacutainer by lab per protocol ; labeled in presence of the patient and sent to lab. Reassurance given. Reassessment after intervention and medication administered. She has had no adverse reaction. Overall patient status- she states feels better. Patient ready for evaluation- chart flagged and PA notified. Care transferred and report given (BRENT Keen in CCU). --16:00 Bekah Balwdin R.N. 15:41 08/22/2016 Duoneb (Ipratropium-Albuterol) Neb TX Nebulizer 1 unit dose given. Given by the respiratory therapist. Allergies verified and confirmed 5 rights. Tony Bourgeois --16:06 Tony Bourgeois 16:03 08/22/2016 Tylenol PO Response: no adverse reaction. --16:18 Bekah Baldwin R.N. DISPOSITION / DISCHARGE 16:02 08/22/2016 Site #1 reassessed; line flushes easily. Line flushed with saline. Good blood return present. --16:02 Baldwin, Bekah, R.N. Cardiac rhythm: normal sinus rhythm. Condition at departure: improved and stable. The goals identified in the patient's plan of care were met. Report was given to a nurse via a phone call. (BRENT keen). Bed obtained (1600 PM). ( transferred to CCU, safely via stretcher, IV intact). --16:03 Bekah Baldwin R.N. 16:00 08/22/16. BP: 119/79. HR: 82. RR: 13. O2 saturation: 93% on nasal cannula at 2 liters/minute. Temp: 98.2 F. Pain level now: 0/10. --16:03 Bekah Baldwin R.N. Departure time: 1605 PM. --16:18 Bekah Baldwin R.N. Locked/Released at 08/22/2016 16:19 by Bekah Baldwin R.N.
[2016-08-22] MEDS ORDERED: ATENOLOL50 MG PO (15:24)
[2016-08-22] MEDS ORDERED: ADVAIR DISKU1 INH (15:24)
[2016-08-22] MEDS ORDERED: CALCIUM CARBON500 MG PO (15:25)
[2016-08-22] MEDS ORDERED: CLONAZEPAM1 MG PO (15:25)
[2016-08-22] MEDS ORDERED: DILTIAZEM HCL (15:26)
[2016-08-22] MEDS ORDERED: LEVOTHYROXINE50 MCG PO (15:27)
[2016-08-22] MEDS ORDERED: LOVASTATIN40 MG PO (15:27)
[2016-08-22] MEDS ORDERED: NAPROXEN250 MG PO (15:28)
[2016-08-22] MEDS ORDERED: EQL OMEPRAZOLE20 MG (15:28)
[2016-08-22] MEDS ORDERED: TRAMADOL HCL50 MG PO (15:29)
[2016-08-22] MEDS ORDERED: TRAZODONE HCL50 MG PO (15:29)
[2016-08-22] MEDS ORDERED: VENLAFAXINE HCL25 MG PO (15:30)
[2016-08-22] MEDS ORDERED: VITAMIN D-31000 UNIT PO (15:30)
[2016-08-22] MEDS ORDERED: ZYMAXID (15:31)
[2016-08-22 16:17] VITALS: BP 123/74
[2016-08-22 18:36] VITALS: BP 136/88
[2016-08-22 19:10] VITALS: BP 130/76
--- NOTE | 2016-08-22 20:03 | HISTORY AND PHYSICAL ---
PLEASE DISREGARD THIS HISTORY AND PHYSICAL ADMITTED: 08/22/2016 CHIEF COMPLAINT: 1. Shortness of breath 2. Chest tightness. HISTORY OF PRESENT ILLNESS: Information Source: The patient and her daughter. Reliability: Good. A 76-year-old female patient with past medical history of COPD, hypertension, hypothyroidism, degenerative joint disease, depression, anxiety, insomnia, presented to the emergency department with a complaint of shortness of breath. On initial evaluation in the emergency department, she was found to be hypoxic on room air, and physical examination was consistent with wheezing. For that reason, she is admitted to the hospital for severe COPD exacerbation with acute respiratory failure and hypoxia. As per the patient, she was here in [facility] Emergency Department on 08/18/2016 with the same complaint. At that time, she was given COPD protocol and regimen and was discharged on prednisone and levofloxacin with nebulization treatment. She was taking her medications for the last 4 days but did not see any improvement. Today morning, she felt she was more short of breath and had more wheezing and felt as if her chest had tightened. She was not able to bring up the sputum. So she came back to emergency room and she is admitted to the hospital for severe COPD exacerbation with hypoxia. MEDICAL/SURGICAL HISTORY: Past medical history: Lewy body dementia, peptic ulcer disease, COPD, asthma, depression, anxiety attacks, degenerative joint disease, osteoporosis, migraine headaches, cataract, hypothyroidism, hypertension, hyperlipidemia,, history of skin cancer, GERD, history of TIA in the past. Past surgical history: Bladder suspension, carpal tunnel surgery, endoscopy, hysterectomy, tubal ligation. MEDICATIONS: Home medications: 1. Atenolol 50 mg b.i.d. 2. Calcium supplements. 3. Clonazepam 1 mg p.o. 3 times a day. 4. Diltiazem ER 180 mg daily. 5. Levothyroxine 50 mcg daily. 6. Lovastatin 40 mg daily. 7. Naproxen oral 500 mg p.r.n. 8. Omeprazole oral. 9. Trazodone 50 mg p.o. at bedtime. 10. Venlafaxine 75 mg p.o. daily. 11. Vitamin D oral supplement. 12. Zymaxid ophthalmic solution. 13. Prednisone oral 20 mg, prescribed 4 days back. 14. Levofloxacin oral 500 mg, prescribed 4 days back. ALLERGIES: 1. CODEINE, SEVERE. SOCIAL HISTORY: The patient lives in the community independently. Had a history of chronic smoking, quit 37 years ago. Drinks alcohol 4-5 drinks every day. No history of drug use. Has a daughter, who is her legal caregiver. FAMILY HISTORY: Not significant. REVIEW OF SYSTEMS: She denies any fever, chills, sweats, weakness, feeling tired from the breathing. No history of conjunctival inflammation, redness of the eyes. No history of nasal discharge, nasal congestion, mouth pain, mouth swelling, throat swelling. Complains of dry cough. Complains of shortness of breath on exertion and at rest, orthopnea. Complains of wheezing. Denies any pleuritic pain. Denies any chest pain, palpitations, orthopnea, PND, edema. Denies any nausea, vomiting, abdominal pain , diarrhea, constipation, melena. Denies any dysuria, frequency, incontinence, hematuria. Denies any back pain. Complains of bilateral knee pain and body aches. Denies any weakness, numbness, incoordination, change in speech, confusion, seizures. PHYSICAL EXAMINATION: VITAL SIGNS: Blood pressure is 123/74, temperature 97.9, pulse 78 per minute, pulse oximetry 92% on 2 liters of nasal cannula. GENERAL: The patient is alert, awake, and oriented x3. Hard of hearing. She is in mild distress. HEENT: Normocephalic, atraumatic head. Eyes: Pupils equally reactive to light. Tongue: Mucous membranes moist. LUNGS: Bilateral extensive wheezing with decreased expiration. NECK: No JVD. Supple. Normal examination. CARDIOVASCULAR: Regular rate and rhythm. Normal S1 and S2. ABDOMEN: Normal
[2016-08-22 20:16] VITALS: BP 129/61
--- NOTE | 2016-08-22 20:18 | HISTORY AND PHYSICAL ---
ADMITTED: 08/22/2016 CHIEF COMPLAINT: 1. Shortness of breath HISTORY OF PRESENT ILLNESS: Information Source: The patient and her daughter. Reliability: Good. A 76-year-old female with a past medical history of Lewy body dementia, gastritis, peptic ulcer disease, asthma, COPD, depression, anxiety reaction, degenerative joint disease, osteoporosis, migraine headache, thyroid disease, hypertension, hypercholesterolemia, skin cancer, GERD, history of TIA in the past, presented to [facility] Emergency Department with a complaint of shortness of breath, wheezing, and chest tightness. On arrival to the emergency department, she was found to be in acute respiratory distress with wheezing and low oxygen saturations. For that, she received IV hydration, IV antibiotic, Solu-Medrol, DuoNeb nebulization treatment, and admitted to hospital for severe COPD exacerbation with hypoxia. Her history goes like this: As per the patient and her daughter, she was fine up until 7-8 days back when she had a bad attack of acid reflux. For that, she had taken treatment. Two to three later after that attack, she started to have shortness of breath and chest tightness to the point that she had to come to [facility] Emergency Department on 08/18/2016. That time she was diagnosed with [id number] COPD exacerbation, was given DuoNeb treatment, steroidal therapy, and antibiotics and was discharged on the same to home. She was taking her prescribed medications, but she did not feel any better. Today morning, she got worse and was not able to catch her breath, so she came back to [facility] Emergency Department and she was found to be in severe COPD exacerbation. For that reason, she is admitted to the hospital. MEDICAL/SURGICAL HISTORY: Past medical history: Lewy body dementia, gastritis, peptic ulcer disease, GERD, hypertension, hyperlipidemia, hypothyroidism, migraine attacks, asthma, COPD, DJD, osteoporosis, history of TIA. Past surgical history: Bladder suspension, carpal tunnel surgery, endoscopy, hysterectomy, tubal ligation. MEDICATIONS: Home medications: 1. Atenolol 50 mg 2 times daily. 2. Clonazepam 1 mg 3 times daily. 3. Diltiazem ER 180 mg daily. 4. Levothyroxine 50 mcg daily. 5. Lovastatin 40 mg daily. 6. Trazodone 50 mg at bedtime. 7. Venlafaxine hydrochloride oral 75 mg daily. 8. Vitamin D oral daily. 9. Zymaxid ophthalmic drops. 10. Calcium supplements. 11. Prednisone 20 mg for 4 days. 12. Levofloxacin oral 500 mg. ALLERGIES: 1. CODEINE, SEVERE. SOCIAL HISTORY: The patient lives in the community and is quite independent. She has a doctor, who is her caregiver. History of chronic smoking, quit 37 years back. History of alcohol abuse with drinks of alcohol 4-5 every day, beer/wine. She denies any drug use. FAMILY HISTORY: Not significant. REVIEW OF SYSTEMS: She denies any fever, chills, sweats, weakness, malaise. She denies any inflammation of the conjunctivae, redness of eyes. She denies any nasal congestion, sore throat. She denies any chest pain. Complains of dry cough, shortness of breath with exertion/without exertion. Complains of wheezing. She denies any palpitations. Complains of orthopnea. She denies any PND, edema. She denies nausea, vomiting, abdominal pain, diarrhea, or constipation. She denied dysuria, frequency, incontinence. She denies any back pain. She is complaining of generalized body aches. She denies any weakness , numbness, incoordination, change in speech, confusion, seizures. PHYSICAL EXAMINATION: VITAL SIGNS: Temperature 97.9, pulse 78 per minute, respiratory rate 24 per minute, blood pressure 123/74, pulse oximetry 92 on 2 liters nasal cannula. GENERAL: Alert, awake, oriented x3, in mild distress due to shortness of breath. HEENT: Head atraumatic, normocephalic. Pupils equally reactive to light bilaterally. Lungs extensive bilateral wheezing with decreased expiratory breath sounds. NECK: Supple. No JVD. CARDIOVASCULAR: Regular rate and rhythm, normal S1 and S2. ABDOMEN: Protuberant, soft, nontender. No guarding. No rebound. EXTREMITIES: No edema. NEUROLOGIC: Grossly intact. LAB/IMAGING: WBC 5.4, hemoglobin 15, hematocrit 46.6, neutrophils 80.5, platelets 208. Sodium 142, potassium 3.1, chloride 101, CO2 33, BUN 30, creatinine 1.3, glucose 100, lactic acid 1.3, calcium 8.8. Bilirubin 0.5, AST 22, ALT 39, alkaline phosphatase 56. BNP 21.6. Total protein 7.3, albumin 3.9. Procalcitonin less than 0.5. ABG: pH 7.43, pCO2 44, pO2 61, bicarbonate 29.5, O2 saturations 89%. D-dimer 1.211. Chest x-ray: Chronic obstructive pulmonary disease, otherwise negative chest. IMPRESSION/PLAN: A 76-year-old female with past medical history of: 1. Asthma and chronic obstructive pulmonary disease,Admitted with severe asthma /chronic obstructive pulmonary disease exacerbation with hypoxia. She will be started on intravenous Solu-Medrol; intravenous antibiotics, ceftriaxone and Zithromax; DuoNeb; O2 through nasal cannula; switch to BiPAP as needed. Will monitor her in the intensive care unit in view of hypoxia. Her D-dimer is elevated at 1.11, but her Wells score is less than 2, which shows she is low probability and risk for pulmonary embolism. If her symptoms do not improve, consider CT scan of the thorax to rule out pulmonary embolus. 3. Hypokalemia. Replace potassium with potassium chloride. Repeat potassium levels in the morning. 4. Hypertension. Will continue with atenolol and diltiazem 2 times a day. 5. Hypothyroidism. Continue with levothyroxine 50 mcg daily. Check TSH levels. 6. Depression. Continue with Effexor. 7. Hyperlipidemia. Continue with atorvastatin. Check lipid profile in the morning. 8. Anxiety disorder. We will continue with low dose of clonazepam to avoid withdrawal, hold trazadone. 9. Gastrointestinal prophylaxis: Proton pump inhibitor. 10. Deep venous thrombosis prophylaxis: Sequential compression devices.
[2016-08-22 21:10] VITALS: BP 142/89
--- NOTE | 2016-08-22 22:44 | ED DISCHARGE INSTRUCTIONS ---
Patient: JOSY WELDON General Instructions [facility] VisitID: [id number] [address] [place] [address] 76y, F Registration Date/Time: 08/22/2016 Acute exacerbation of COPD. Moderate chronic renal insufficiency. Hypoxia. (Electronically signed by Jacob Romero Dr. 08/22/2016 22:44)
--- NOTE | 2016-08-22 22:44 | ED MAR SUMMARY ---
..... Medication Administration Record [facility] [address] [facility] [address] Patient: JOSY WELDON Visit ID: [id number] 76y, F Weight: 81.6 kg Height/Length: 64 in BMI: 30.9 ALLERGIES: Codeine Given 07:58 08/22/2016 Nichole Perez R.N. Medication Administered: DUONEB [NEB TX] (IPRATROPIUM-ALBUTEROL), Dose: 1 unit dose Neb TX. Medication Ordered: DuoNeb Neb Tx 1 unit dose (NOW). Given 09:51 08/22/2016 Tony Bourgeois, Medication Administered: ALBUTEROL [NEB TX], Dose: 1 unit dose Nebulizer Neb TX. Medication Ordered: Albuterol Neb Tx 7.5 mg (NOW). Given 10:14 08/22/2016 Silvana Antonio R.N. Medication Administered: SOLU-MEDROL [IVP] (METHYLPREDNISOLONE SODIUM SUCC), Dose: 125 mg IVP over 2 minute(s), Site: #1 left upper arm. Medication Ordered: Solu-MEDROL IV 125 mg (NOW). Given 11:48 08/22/2016 Nichole Perez R.N. Medication Administered: MAGNESIUM SULFATE [IVP] (MAGNESIUM SULFATE IN D5W), Dose: 2 gm IVP over 1 hour(s), Site: #1 left upper arm. Medication Ordered: Magnesium Sulfate IV 2 gm/50mL (HIGH ALERT MEDICATION, NOW). Start 14:45 08/22/2016 Nichole Perez R.N. Medication Administered: ROCEPHIN [IVPB] (CEFTRIAXONE SODIUM), Dose: 2 gm IVPB over 30 minute(s), Rate: 100 mL/hr, Dispensed: 50 mL bag, Site: #1 left upper arm. Medication Ordered: Rocephin IV 1 gm/50mL (NOW). Given 15:41 08/22/2016 Tony Bourgeois, Medication Administered: DUONEB [NEB TX] (IPRATROPIUM-ALBUTEROL), Dose: 1 unit dose Nebulizer Neb TX. Medication Ordered: DuoNeb Neb Tx 1 unit dose (NOW). Given 15:51 08/22/2016 Bekah Baldwin R.N. Medication Administered: TYLENOL [PO] (ACETAMINOPHEN), Dose: 650 mg Tablets PO. Medication Ordered: Tylenol PO 650 mg (NOW).
--- NOTE | 2016-08-22 22:44 | ED DISCHARGE INSTRUCTIONS ---
Patient: JOSY WELDON General Instructions [facility] VisitID: [id number] [address] [place] [address] 76y, F Registration Date/Time: 08/22/2016 Acute exacerbation of COPD. Moderate chronic renal insufficiency. Hypoxia. (Electronically signed by Jacob Romero Dr. 08/22/2016 22:44)
--- NOTE | 2016-08-22 22:44 | ED MAR SUMMARY ---
..... Medication Administration Record [facility] [address] [facility] [address] Patient: JOSY WELDON Visit ID: [id number] 76y, F Weight: 81.6 kg Height/Length: 64 in BMI: 30.9 ALLERGIES: Codeine Given 07:58 08/22/2016 Nichole Perez R.N. Medication Administered: DUONEB [NEB TX] (IPRATROPIUM-ALBUTEROL), Dose: 1 unit dose Neb TX. Medication Ordered: DuoNeb Neb Tx 1 unit dose (NOW). Given 09:51 08/22/2016 Tony Bourgeois, Medication Administered: ALBUTEROL [NEB TX], Dose: 1 unit dose Nebulizer Neb TX. Medication Ordered: Albuterol Neb Tx 7.5 mg (NOW). Given 10:14 08/22/2016 Silvana Antonio R.N. Medication Administered: SOLU-MEDROL [IVP] (METHYLPREDNISOLONE SODIUM SUCC), Dose: 125 mg IVP over 2 minute(s), Site: #1 left upper arm. Medication Ordered: Solu-MEDROL IV 125 mg (NOW). Given 11:48 08/22/2016 Nichole Perez R.N. Medication Administered: MAGNESIUM SULFATE [IVP] (MAGNESIUM SULFATE IN D5W), Dose: 2 gm IVP over 1 hour(s), Site: #1 left upper arm. Medication Ordered: Magnesium Sulfate IV 2 gm/50mL (HIGH ALERT MEDICATION, NOW). Start 14:45 08/22/2016 Nichole Perez R.N. Medication Administered: ROCEPHIN [IVPB] (CEFTRIAXONE SODIUM), Dose: 2 gm IVPB over 30 minute(s), Rate: 100 mL/hr, Dispensed: 50 mL bag, Site: #1 left upper arm. Medication Ordered: Rocephin IV 1 gm/50mL (NOW). Given 15:41 08/22/2016 Tony Bourgeois, Medication Administered: DUONEB [NEB TX] (IPRATROPIUM-ALBUTEROL), Dose: 1 unit dose Nebulizer Neb TX. Medication Ordered: DuoNeb Neb Tx 1 unit dose (NOW). Given 15:51 08/22/2016 Bekah Baldwin R.N. Medication Administered: TYLENOL [PO] (ACETAMINOPHEN), Dose: 650 mg Tablets PO. Medication Ordered: Tylenol PO 650 mg (NOW).
--- NOTE | 2016-08-22 22:44 | ED MED RECONCILIATION SUMMARY ---
Patient: JOSY WELDON Medication Reconciliation Report [facility] VisitID: [id number] [address] [place] [address] 76y, F Registration Date/Time: 08/22/2016 Weight: 81.6 kg Height/Length: 64 in. BMI: 30.9 ALLERGIES: Codeine The patient's Home Medications are listed below: THE FOLLOWING MEDICATIONS NEED TO BE RECONCILED: Advair Diskus Inhalation Atenolol Oral 50 mg, 2x a day Calcium ClonazePAM Oral 1 mg, 3x a day Diltiazem ER 180 mg , daily, just recently increased from 120 mg Levofloxacin Oral 500 mg, 4 days, short course, completed Levothyroxine Sodium Oral 50 mcg, daily Lovastatin Oral 40 mg q day Naproxen Oral 500 mg Omeprazole Oral PredniSONE Oral 20 mg, 4 days, short course, completed course. Trazodone 50 mg q HS Venlafaxine HCl Oral 75 mg, daily Vitamin D Oral Zymaxid Ophthalmic The source(s) of the original Home Medication information: patient patient's family member The following Medications were given to the patient in the Emergency Department: Duoneb [Neb Tx] Neb TX 1 unit dose, administered: 08/22/2016 7:58:00 AM Albuterol [Neb Tx] Neb TX 1 unit dose, administered: 08/22/2016 9:51:00 AM SOLU-MEDROL [IVP] IVP 125 mg, administered: 08/22/2016 10:14:00 AM Magnesium Sulfate [IVP] IVP 2 gm, administered: 08/22/2016 11:48:00 AM Rocephin [IVPB] IVPB bolus 0, then 2 gm 100 mL/hr, administered: 08/22/2016 2:45:00 PM Tylenol [PO] PO 650 mg, administered: 08/22/2016 3:51:00 PM Duoneb [Neb Tx] Neb TX 1 unit dose, administered: 08/22/2016 3:41:00 PM The following Medications were prescribed to the patient: None.
--- NOTE | 2016-08-22 22:44 | ED MED RECONCILIATION SUMMARY ---
Patient: JOSY WELDON Medication Reconciliation Report [facility] VisitID: [id number] [address] [place] [address] 76y, F Registration Date/Time: 08/22/2016 Weight: 81.6 kg Height/Length: 64 in. BMI: 30.9 ALLERGIES: Codeine The patient's Home Medications are listed below: THE FOLLOWING MEDICATIONS NEED TO BE RECONCILED: Advair Diskus Inhalation Atenolol Oral 50 mg, 2x a day Calcium ClonazePAM Oral 1 mg, 3x a day Diltiazem ER 180 mg , daily, just recently increased from 120 mg Levofloxacin Oral 500 mg, 4 days, short course, completed Levothyroxine Sodium Oral 50 mcg, daily Lovastatin Oral 40 mg q day Naproxen Oral 500 mg Omeprazole Oral PredniSONE Oral 20 mg, 4 days, short course, completed course. Trazodone 50 mg q HS Venlafaxine HCl Oral 75 mg, daily Vitamin D Oral Zymaxid Ophthalmic The source(s) of the original Home Medication information: patient patient's family member The following Medications were given to the patient in the Emergency Department: Duoneb [Neb Tx] Neb TX 1 unit dose, administered: 08/22/2016 7:58:00 AM Albuterol [Neb Tx] Neb TX 1 unit dose, administered: 08/22/2016 9:51:00 AM SOLU-MEDROL [IVP] IVP 125 mg, administered: 08/22/2016 10:14:00 AM Magnesium Sulfate [IVP] IVP 2 gm, administered: 08/22/2016 11:48:00 AM Rocephin [IVPB] IVPB bolus 0, then 2 gm 100 mL/hr, administered: 08/22/2016 2:45:00 PM Tylenol [PO] PO 650 mg, administered: 08/22/2016 3:51:00 PM Duoneb [Neb Tx] Neb TX 1 unit dose, administered: 08/22/2016 3:41:00 PM The following Medications were prescribed to the patient: None.
[2016-08-23 03:44] VITALS: BP 151/75
--- NOTE | 2016-08-23 07:31 | Progress Note ---
Subjective General Admitted with severe asthma/chronic obstructive pulmonary disease exacerbation with hypoxia. Will be started on intravenous Solu-Medrol; intravenous antibiotics, ceftriaxone and Zithromax; DuoNeb; oxygen supplementation through nasal cannula; BiPAP as needed. Will monitor her in the intensive care unit in view of hypoxia. Her D-dimer is elevated at 1.11, but her Wells score is less than 2, which shows she is low probability and risk for pulmonary embolism. If her symptoms do not improve, can get CT scan of the thorax to rule out pulmonary embolus. Patient seems to be doing pretty well at this time still weak. Pulls off O2 then seems to be really struggling to breath "I can't breath." per nursing she would benefit from another day here. Physical Exam Vital Signs / I&Os Vital Signs Date Time Temp Pulse Resp B/P Pulse O2 O2 Flow FiO2 Ox Delivery Rate 08/23 0626 79 24 96 Nasal 4.0 Cannula 08/23 0535 94 08/23 0344 75 22 151/75 88 Room Air 08/23 0101 4.0 08/22 2109 87 24 142/89 92 Nasal 2.0 Cannula 08/22 2024 92 08/22 2015 92 22 129/61 93 Nasal 2.0 Cannula 08/22 195 Nasal 2.0 Cannula 08/22 1922 2.0 08/22 1910 85 24 130/76 94 Nasal 2.0 Cannula 08/22 1836 97.3 90 24 136/88 92 Nasal 2.0 Cannula 08/22 1658 2.0 08/22 1617 97.9 78 24 123/74 92 Nasal 2.0 Cannula 08/22 1505 4.0 08/22 1000 2.0 08/22 0755 2.0 I&O 08/23 0000 08/22 1600 08/22 0800 Intake Total 50 Output Total 825 Balance -775 General Appearance Alert, wakes and confused. Lungs coarse BS non focal Cardiovascular Regular rate and rhythm, No murmurs, gallops, rubs Abdomen Soft, No tenderness Extremities No edema LAB Results Laboratory Tests 08/23 08/23 08/23 08/22 08/22 0410 0410 0410 1555 1206 Blood Gas Sample Site LR Total CO2 (24.0 - 30.0 mmol/L) 30.8 ABG pH (7.35 - 7.45) 7.43 ABG pCO2 at Pt Temp (35 - 45 mmHg) 44.3 ABG pO2 at Pt Temp (60.0 - 80.0 mmHg) 61.1 ABG HCO3 (20.0 - 26.0 mmol/L) 29.5 ABG O2 Sat Calc/Myron (95.1 - 100.0 %) 90.6 ABG Base Excess (-6.0 - -6.0 mmol/L) 4.6 ABG Reduced Hgb (%) 9.2 ABG Carboxyhemoglobin (0.5 - 1.5 %) 1.4 ABG Methemoglobin (0.4 - 1.5 %) 0.4 Ruddy Test YES Other Total Hgb (12.0 - 16.0 g/dL) 14.5 A-a O2 Gradient (7.0 - 14.0 mmHg) 0.0 Hgb O2 Saturation (95.0 - 100.0 %) 89.0 Respiration Rate (/MIN) 20 O2 Liters/Min (0 - 20 L/MIN) 2 Vent Mode NC FiO2 (20 - 101 %) 0.28 Chemistry Plasma Sodium (136 - 145 mmol/L) 140 Plasma Potassium (3.5 - 5.1 mmol/L) 4.4 Plasma Chloride (98 - 107 mmol/L) 104 CO2 (Enzymatic) (21 - 32 mmol/L) 30 BUN (7 - 18 mg/dL) 23 Creatinine (0.6 - 1.3 mg/dL) 0.8 Est GFR ( Amer) (mL/min) >60 Est GFR (Non-Af Amer) (mL/min) >60 Glucose (70 - 110 mg/dL) 164 Plasma Calcium (8.5 - 10.1 mg/dL) 8.5 Plasma Magnesium (1.8 - 2.4 mg/dL) 2.2 Total Bilirubin (0.0 - 1.0 mg/dL) 0.4 Direct Bilirubin (0 - 0.3 mg/dL) 0.1 AST (15 - 37 U/L) 19 ALT (12 - 78 U/L) 37 Alkaline Phosphatase (46 - 116 U/L) 45 Total Protein (6.4 - 8.2 g/dL) 6.2 Albumin (3.3 - 5.0 g/dL) 3.6 Triglycerides (30 - 200 mg/dL) 61 Cholesterol (140 - 200 mg/dL) 210 LDL Cholesterol, Calc (mg/dL) 141 HDL Cholesterol (32 - 96 mg/dL) 57 LDL/HDL Ratio 2.5 Cholesterol/HDL Ratio 3.7 Coronary Risk Interp (0.4 - 1.0) 0.7 Free T4 Calculated (0.78 - 4.13 ng/dL) 1.26 Free T3 pg/mL (2.91 - 4.70 pg/mL) 1.8 TSH 3rd Generation (0.30 - 3.74 uIU/mL) Cancelled 0.267 Hematology WBC (4.5 - 11.5 K/uL) 5.4 RBC (4.00 - 5.20 M/uL) 4.96 Hgb (12.0 - 16.0 gm/dL) 15.0 Hct (36.0 - 46.0 %) 46.6 MCV (80 - 100 fL) 94 MCH (26 - 34 pg) 30 RDW (11.6 - 14.8 %) 14.7 Gran % (53 - 90) 80.5 Lymph % (Auto) (25 - 40 %) 15.2 [place] % (Auto) (3 - 14 %) 4.3 Plt Count, EDTA (150 - 400 K/uL) 208 PUBS MCHC (31 - 37 g/dL) 32 08/22 08/22 08/22 08/22 1140 0800 0800 0800 Chemistry Plasma Sodium (136 - 145 mmol/L) 142 Plasma Potassium (3.5 - 5.1 mmol/L) 3.1 Plasma Chloride (98 - 107 mmol/L) 101 CO2 (Enzymatic) (21 - 32 mmol/L) 33 BUN (7 - 18 mg/dL) 30 Creatinine (0.6 - 1.3 mg/dL) 1.3 Est GFR ( Amer) (mL/min) 51.30 Est GFR (Non-Af Amer) (mL/min) 42.33 Glucose (70 - 110 mg/dL) 100 Lactic Acid (0.4 - 2.0 mmol/L) 1.3 Plasma Calcium (8.5 - 10.1 mg/dL) 8.8 Total Bilirubin (0.0 - 1.0 mg/dL) 0.5 AST (15 - 37 U/L) 22 ALT (12 - 78 U/L) 39 Alkaline Phosphatase (46 - 116 U/L) 56 B-Natriuretic Peptide (5 - 100 pg/ml) 21.6 Total Protein (6.4 - 8.2 g/dL) 7.3 Albumin (3.3 - 5.0 g/dL) 3.9 Procalcitonin (0 - 0.5 ng/mL) <0.5 Coagulation D-Dimer, Quantitative (0.27 - 0.52 ug/mLFEU) 1.11 Hematology WBC (4.5 - 11.5 K/uL) 8.7 RBC (4.00 - 5.20 M/uL) 4.95 Hgb (12.0 - 16.0 gm/dL) 15.3 Hct (36.0 - 46.0 %) 46.6 MCV (80 - 100 fL) 94 MCH (26 - 34 pg) 31 RDW (11.6 - 14.8 %) 14.3 Neut % (Auto) (50 - 75 %) 62.1 Lymph % (Auto) (25 - 40 %) 25.8 Dickinson % (Auto) (3 - 14 %) 11.1 Eos % (Auto) (0 - 4 %) 0.5 Baso % (Auto) (0 - 2 %) 0.5 Plt Count, EDTA (150 - 400 K/uL) 196 PUBS MCHC (31 - 37 g/dL) 33 Microbiology Date/Time Procedure - Status Source Growth 08/22 1615 MRSA Screen - RECD NASAL 08/22 1148 Blood Culture - RECD BLOOD 08/22 1145 Influenza Screen - COMP NASALPHAR 08/22 1140 Blood Culture - RECD BLOOD Assessment and Plan Problem List 1. COPD exacerbation Plan Patient has copd exacerbation and is taking her time doing better. Has dementia making it harder for her to improve as she takes off the O2. No acute issues. 2. Hypoxia Plan On O2 improving. 3. Chronic renal disease Plan stable
[2016-08-23 14:52] VITALS: BP 152/93
[2016-08-23 23:30] VITALS: BP 130/85
[2016-08-24 03:08] VITALS: BP 141/79
[2016-08-24 06:38] VITALS: BP 147/70
--- NOTE | 2016-08-24 07:32 | Progress Note ---
Subjective General General Admitted with severe asthma/chronic obstructive pulmonary disease exacerbation with hypoxia. Will be started on intravenous Solu-Medrol; intravenous antibiotics, ceftriaxone and Zithromax; DuoNeb; oxygen supplementation through nasal cannula; BiPAP as needed. Will monitor her in the intensive care unit in view of hypoxia. Her D-dimer is elevated at 1.11, but her Wells score is less than 2, which shows she is low probability and risk for pulmonary embolism. If her symptoms do not improve, can get CT scan of the thorax to rule out pulmonary embolus. Patient currently is doing much better. Clearing up. No longer having the hallucinations. More conversant this am. Still wheezy and can't get "it up" No cp, fevers, hallucinations. Physical Exam Vital Signs / I&Os Vital Signs Date Time Temp Pulse Resp B/P Pulse O2 O2 Flow FiO2 Ox Delivery Rate 08/24 0638 97.5 71 24 147/70 97 Nasal 1.0 Cannula 08/24 0308 66 22 141/79 95 Nasal 2.0 Cannula 08/23 2330 97.9 61 22 130/85 98 Nasal 4.0 Cannula 08/23 1944 Nasal 4.0 Cannula 08/23 1940 4.0 08/23 1934 61 08/23 1452 97.5 68 24 152/93 99 Nasal 4.0 Cannula 08/23 1431 4.0 08/23 1419 78 08/23 1152 67 20 100 Nasal 4.0 Cannula 08/23 0858 58 I&O 08/24 0000 08/23 1600 08/23 0800 Intake Total 880 650 Output Total 400 650 850 Balance -400 230 -200 General Appearance Alert, talkative and appropriate, oriented to self, date, location HEENT Normal exam Lungs coarse BS breath sounds and wheezy. Cardiovascular Regular rate and rhythm, No murmurs, gallops, rubs Abdomen Soft, No tenderness Extremities No edema Assessment and Plan Problem List 1. COPD exacerbation Plan Is doing much better but still wheezy on O2 2. Hypoxia Plan Improving 3. Chronic renal disease Plan Stable 4. Dementia with Lewy bodies Plan Much better this am.
[2016-08-24 10:09] VITALS: BP 127/65
[2016-08-24 14:15] VITALS: BP 136/62
[2016-08-24 18:11] VITALS: BP 108/52
[2016-08-24 21:45] VITALS: BP 155/69
[2016-08-25 01:38] VITALS: BP 175/71
--- NOTE | 2016-08-25 06:52 | Progress Note ---
Subjective General Admitted with severe asthma/chronic obstructive pulmonary disease exacerbation with hypoxia. Will be started on intravenous Solu-Medrol; intravenous antibiotics, ceftriaxone and Zithromax; DuoNeb; oxygen supplementation through nasal cannula; BiPAP as needed. Will monitor her in the intensive care unit in view of hypoxia. Her D-dimer is elevated at 1.11, but her Wells score is less than 2, which shows she is low probability and risk for pulmonary embolism. If her symptoms do not improve, can get CT scan of the thorax to rule out pulmonary embolus. Currently she has been with confusion worse at night per nursing. This am she is coughing some and not sleeping well at all last night. Was up urinating constantly. She talks about being sick for 3 months starting off with a kitten bite, and Dr. Romero, and a grandchild using their nebulizer meds. Physical Exam Vital Signs / I&Os Vital Signs Date Time Temp Pulse Resp B/P Pulse O2 O2 Flow FiO2 Ox Delivery Rate 08/25 0225 2.0 08/25 0138 98.1 52 16 175/71 95 Nasal 2.0 Cannula 08/24 2145 97.5 67 32 155/69 95 Nasal 2.0 Cannula 08/24 2016 69 08/24 1957 Nasal 2.0 Cannula 08/24 1921 2.0 08/24 1811 97.9 64 20 108/52 94 Nasal 2.0 Cannula 08/24 1446 2.0 08/24 1415 98.1 56 22 136/62 98 Nasal 2.0 Cannula 08/24 1009 98.1 67 24 127/65 94 Nasal 2.0 Cannula 08/24 0939 Nasal 2.0 Cannula 08/24 0925 82 I&O 08/25 0000 08/24 1600 08/24 0800 Intake Total 500 1331 1727 Output Total 600 1183 Balance -745 363 0011 General Appearance Alert, talks in full sentences, has some coughing Lungs coarse BS with diffuse wheezes Cardiovascular Regular rate and rhythm Abdomen Soft, No tenderness Extremities tr -1 edema bilaterally Psych/Mental Status Confused, distracted, derails continuously Assessment and Plan Problem List 1. COPD exacerbation Plan Slowly improving. Will try to change to oral abx, prednisone, and nebs and see how she does. Repeat labs, cxr in am 2. Hypoxia Plan Will continues to have O2 NC 3. Dementia with Lewy bodies Plan Memory loss issues 4. Chronic renal disease Plan Has kidney issues chronic stable.
[2016-08-25 07:08] VITALS: BP 190/82
[2016-08-25 10:47] VITALS: BP 184/89
[2016-08-25 15:19] VITALS: BP 167/74
[2016-08-25 18:26] VITALS: BP 147/49
--- NOTE | 2016-08-26 06:27 | DIAGNOSTIC IMAGING REPORT ---
PROCEDURE: XR CHEST 1 VIEW INDICATION: Follow up pneumonia. TECHNIQUE: Portable AP view (0545 hours). COMPARISON: Compared to chest x-ray on 08/22/2016. FINDINGS: There at been development of mild parenchymal changes and volume loss in the right lung. There is minor linear subsegmental atelectasis at the left lung base. Heart and mediastinum are normal. Thorax is normal. IMPRESSION: 1. Development of mild of parenchymal changes in the right mid lower lung compatible with pneumonia (e.g., aspiration, bacterial, Mycoplasma).
[2016-08-26 07:43] VITALS: BP 173/88
--- NOTE | 2016-08-26 08:01 | Progress Note ---
Subjective General Admitted with severe asthma/chronic obstructive pulmonary disease exacerbation with hypoxia. Was Currentl;started on intravenous Solu-Medrol; intravenous antibiotics, ceftriaxone and Zithromax; DuoNeb; oxygen supplementation through nasal cannula; BiPAP as needed. Will monitor her in the intensive care unit in view of hypoxia. Her D-dimer is elevated at 1.11, but her Wells score is less than 2, which shows she is low probability and risk for pulmonary embolism. If her symptoms do not improve, can get CT scan of the thorax to rule out pulmonary embolus. Currently on PO prednisone, oral Keflex Patient feels better than two days ago, but still feels congested. She slept better last night Denies chest pain or pleuritic pain. No hemoptysis No Gi complaints. N o leg edema Physical Exam Vital Signs / I&Os Vital Signs Date Time Temp Pulse Resp B/P Pulse O2 O2 Flow FiO2 Ox Delivery Rate 08/26 0743 97.7 56 21 173/88 93 Nasal 2.0 Cannula 08/26 0548 57 100 Nasal 2.0 Cannula 08/25 2259 72 90 Nasal 2.0 Cannula 08/25 2215 Nasal 2.0 Cannula 08/25 2155 2.0 08/25 2150 84 08/25 1826 98.1 68 16 147/49 95 Nasal 2.0 Cannula 08/25 1519 98.1 73 16 167/74 94 Nasal 2.0 Cannula 08/25 1047 98.8 60 22 184/89 92 Room Air 0.0 08/25 0947 95 Room Air 0.0 08/25 0917 77 93 Nasal 0.0 Cannula 08/25 0906 Nasal 1.0 Cannula 08/25 0830 78 08/25 0800 1.0 I&O 08/26 0000 08/25 1600 08/25 0800 Intake Total 480 1619 Output Total 854 475 950 Balance -854 5 669 General Appearance Alert, Oriented X3, Cooperative, No acute distress HEENT Normal exam, Moist mucous membranes Lungs coarse breath sound, no rales, no wheezes Cardiovascular Regular rate and rhythm, Normal S1 and S2, No murmurs, gallops, rubs Abdomen Soft, No tenderness, No guarding, No rebound Extremities No cyanosis, No edema, Normal pulses, Santa's sign negative Neurological No lateralizing signs Psych/Mental Status Mood normal LAB Results Laboratory Tests 08/26 0515 Chemistry Plasma Sodium (136 - 145 mmol/L) 143 Plasma Potassium (3.5 - 5.1 mmol/L) 3.7 Plasma Chloride (98 - 107 mmol/L) 106 CO2 (Enzymatic) (21 - 32 mmol/L) 34 BUN (7 - 18 mg/dL) 15 Creatinine (0.6 - 1.3 mg/dL) 0.7 Est GFR ( Amer) (mL/min) >60 Est GFR (Non-Af Amer) (mL/min) >60 Glucose (70 - 110 mg/dL) 97 Plasma Calcium (8.5 - 10.1 mg/dL) 8.0 Hematology WBC (4.5 - 11.5 K/uL) 8.8 RBC (4.00 - 5.20 M/uL) 3.97 Hgb (12.0 - 16.0 gm/dL) 12.4 Hct (36.0 - 46.0 %) 38.2 MCV (80 - 100 fL) 96 MCH (26 - 34 pg) 31 RDW (11.6 - 14.8 %) 14.6 Neut % (Auto) (50 - 75 %) 76.1 Lymph % (Auto) (25 - 40 %) 14.8 [place] % (Auto) (3 - 14 %) 8.9 Eos % (Auto) (0 - 4 %) 0 Baso % (Auto) (0 - 2 %) 0.2 Plt Count, EDTA (150 - 400 K/uL) 179 PUBS MCHC (31 - 37 g/dL) 32 Assessment and Plan Problem List 1. COPD exacerbation Plan continue pro prednisone, prn nebulizers and supplemental oxygen add advair 250/50 1 puff q 12 2. Dementia with Lewy bodies Plan stable 3. Hypothyroidism Plan free t3 is low and TSH mildly elvated, normal t4. Increase levothyroxine to 75 mcg po daily. recheck TSH in 6 weeks as an outpatient 4. Hypertension Plan systolic bp elevated. add lisinopril 10 mg po daily 5. Pneumonia Plan Check procalcitonin level. If elevated, would change Keflex to medication with gram negative coverage like ceftin E&M Codes Rounding: Inpt-Moderate/13132
[2016-08-26 10:15] VITALS: BP 156/69
[2016-08-26 15:36] VITALS: BP 154/88
[2016-08-26 18:20] VITALS: BP 162/83
[2016-08-27] VITALS (7 sets, daily range): BP systolic 118–194; BP diastolic 55–89
--- NOTE | 2016-08-27 06:40 | Progress Note ---
Subjective General Patient states that she is doing a little better. Has been with a deep cough that is doing a little better. Has been off of O2. Had ativan to sleep last night and did really well. No cp. Physical Exam Vital Signs / I&Os Vital Signs Date Time Temp Pulse Resp B/P Pulse O2 O2 Flow FiO2 Ox Delivery Rate 08/27 0441 98.1 65 22 194/87 94 Room Air 08/26 2113 69 08/26 1950 Room Air 08/26 1820 98.1 81 20 162/83 96 08/26 1536 98.1 69 16 154/88 93 08/26 1019 98.1 08/26 1015 62 20 156/69 97 Nasal 2.0 Cannula 08/26 1007 55 08/26 1000 Nasal 2.0 Cannula 08/26 0743 97.7 56 21 173/88 93 Nasal 2.0 Cannula I&O 08/27 0000 08/26 1600 08/26 0800 Intake Total 690 480 Output Total 7701 117 7230 Balance -388 105 -1125 General Appearance Alert, Cooperative HEENT Normal exam Lungs Coarse BS with some increase in wheeze with cough Cardiovascular Regular rate and rhythm Abdomen Soft, No tenderness Extremities No edema LAB Results Laboratory Tests 08/27 0425 Chemistry Plasma Sodium (136 - 145 mmol/L) 145 Plasma Potassium (3.5 - 5.1 mmol/L) 3.6 Plasma Chloride (98 - 107 mmol/L) 105 CO2 (Enzymatic) (21 - 32 mmol/L) 35 BUN (7 - 18 mg/dL) 12 Creatinine (0.6 - 1.3 mg/dL) 0.6 Est GFR ( Amer) (mL/min) >60 Est GFR (Non-Af Amer) (mL/min) >60 Glucose (70 - 110 mg/dL) 89 Plasma Calcium (8.5 - 10.1 mg/dL) 8.4 Plasma Magnesium (1.8 - 2.4 mg/dL) 2.0 Hematology WBC (4.5 - 11.5 K/uL) 8.5 RBC (4.00 - 5.20 M/uL) 4.42 Hgb (12.0 - 16.0 gm/dL) 13.6 Hct (36.0 - 46.0 %) 42.1 MCV (80 - 100 fL) 95 MCH (26 - 34 pg) 31 RDW (11.6 - 14.8 %) 14.1 Neut % (Auto) (50 - 75 %) 70.5 Lymph % (Auto) (25 - 40 %) 20.1 Josephine % (Auto) (3 - 14 %) 8.8 Eos % (Auto) (0 - 4 %) 0.4 Baso % (Auto) (0 - 2 %) 0.2 Plt Count, EDTA (150 - 400 K/uL) 195 PUBS MCHC (31 - 37 g/dL) 32 Assessment and Plan Problem List 1. COPD exacerbation Plan Improving at this time. 2. Hypoxia Plan Is off of O2 at this time 3. Dementia with Lewy bodies Plan Is doing ok this am. 4. Hypertension Plan Is with some elevation in bp. Has d/c planning today
--- NOTE | 2016-08-28 08:57 | Progress Note ---
Subjective General Note Date: August 28, 2016 Admission Date: August 22, 2016 Hospital Day: 7 PCP: Levi Cardoza M.D. Status: Inpatient Advanced Directive: FULL CODE Room: 305 Brief History: The patient is a 76-year-old white female with a significant past medical history of Lewy body dementia, peptic ulcer disease, COPD, depression, osteoporosis, hypertension, who presented to [facility] emergency department on the day of admission secondary to complaints of shortness of breath. [facility] ER evaluation at that time was consistent with exacerbation of COPD. Secondary to the above, the patient was admitted by Desire Hernandez M.D. for further evaluation and treatment. For other history present illness, past medical history, family history, social history, review of systems, and admission physical examination please see the patient's history and physical examination and ER visit note in the patient's medical record. Subjective: The patient states she is doing okay. Shortness of breath stable. Persistent mild confusion/agitation. Patient requests: None Medications and Allergies Medications Current Medications Sig/Adriana Start time Last Medication Dose Route Stop Time Status Admin Levothyroxine Sodium 75 MCG DAILY@08/27 0600 AC 08/28 PO 0529 Pantoprazole Sodium 40 MG DAILY@08/27 0600 AC 08/28 Sesquihydrate PO 0529 Hydralazine HCl 10 MG Q6H PRN 08/27 0515 AC 08/27 IV 0650 Artificial Tears 0.02 OZ ASDIRECTED PRN 08/26 1600 AC OP Lisinopril 10 MG DAILY 08/26 0900 AC 08/27 PO 0912 Fluticasone/ See Dose RTBID 08/26 0800 AC 08/27 Salmeterol Insts (1) IN 1939 Clarify Med Order See Dose ASDIRECTED 08/25 1745 AC Insts (2) PO Cephalexin 500 MG TID 08/25 1400 AC 08/28 PO 0529 Prednisone 40 MG DAILY 08/25 0900 AC 08/27 PO 0912 Guaifenesin/ 20 ML Q4H PRN 08/25 0645 AC 08/26 Dextromethorphan PO 2113 Diltiazem HCl 180 MG DAILY 08/23 09 AC 08/27 PO 0912 Venlafaxine HCl 75 MG DAILY 08/23 09 AC 08/27 PO 0912 Trazodone HCl 50 MG QHS 08/23 0100 AC 08/27 PO 2026 Lorazepam See Dose Q2H PRN 08/22 2245 AC 08/28 Insts (3) IV 0259 Donepezil HCl 5 MG DAILY 08/22 223 AC 08/27 PO 09 Atenolol 50 MG BID 08/22 2099 AC 08/27 PO 2025 Clonazepam 0.25 MG QHS 08/22 2099 AC 08/27 PO 2027 Docusate Sodium 100 MG BID 08/22 2099 AC 08/27 PO 2025 Albuterol/Ipratropium 3 ML RTQ6H 08/22 2000 AC 08/27 IN 1937 Atorvastatin Calcium 40 MG QPM 08/22 1800 AC 08/27 PO 181 Acetaminophen 650 MG Q4H PRN 08/22 1530 AC PO Albuterol Sulfate 2.5 MG RTQ3H PRN 08/22 1530 AC IN Ondansetron HCl 4 MG Q6H PRN 08/22 1530 AC IV Dose Instructions: (1)Fluticasone/Salmeterol: 1 CLICK (2)Clarify Med Order: PT MEDS IN PHARMACY (3)Lorazepam: 1 - 2 MG Allergies Coded Allergies: Codeine (Severe, HIVES 20 YEARS AGO 08/22/16) Physical Exam Vital Signs / I&Os Vital Signs Date Time Temp Pulse Resp B/P Pulse O2 O2 Flow FiO2 Ox Delivery Rate 08/27 2252 98.1 59 20 118/55 96 Room Air 08/27 2100 2.0 08/27 2025 72 08/27 1759 98.2 72 20 127/59 92 Room Air 08/27 1443 97.5 68 20 131/83 93 Room Air 2.0 08/27 1206 97.5 68 20 154/81 93 Room Air 08/27 0912 71 I&O 08/28 0000 08/27 1600 08/27 0800 Intake Total 300 720 360 Output Total 125 1100 750 Balance 175 -380 -390 General Appearance Alert, Cooperative, No acute distress Lungs scattered rhonchi, minimal expiratory wheezes Cardiovascular Regular rate and rhythm, Normal S1 and S2 Abdomen Normal bowel sounds, Soft, No tenderness Extremities No cyanosis, No clubbing Neurological Cranial nerves intact, No lateralizing signs Psych/Mental Status Mood normal, Confused Assessment and Plan Problem List 1. Pneumonia Plan -Stable -Afebrile -Normal WBC -Normal Procalcitonin -Continue Keflex to complete a full course of antimicrobial therapy. 2. Hypertension Plan -Blood pressure well controlled -Continue present therapy -BP 134/74 mmHg -Low-salt diet 3. Hypothyroidism Plan -Stable -No further evaluation -Continue present therapy 4. Dementia with Lewy bodies Plan -Stable -Ativan when necessary for agitation -Monitor 5. COPD exacerbation Plan -Improved -Continue inhalation therapy -Prednisone 40 mg by mouth daily, wean to 20 mEq by mouth daily in a.m. -Patient off oxygen therapy 6. Chronic renal disease Plan -BUN and creatinine within normal limits -BUN/creatinine-12/0.6 -Monitor Current status: Fair, improved Anticipated discharge date: Anticipated discharge when nursing home/assisted living bedbound Anticipated discharge placement: [facility] facility/assisted living Patient care time: Time spent in chart review, patient interview, physical exam, CPOE, and care documentation: 25 minutes Visit to patient today: 1 Complexity of care: Moderate E&M Codes Rounding: Inpt-Moderate/[id number]
--- NOTE | 2016-08-28 08:57 | Progress Note ---
Subjective General Note Date: August 28, 2016 Admission Date: August 22, 2016 Hospital Day: 7 PCP: Levi Cardoza M.D. Status: Inpatient Advanced Directive: FULL CODE Room: 305 Brief History: The patient is a 76-year-old white female with a significant past medical history of Lewy body dementia, peptic ulcer disease, COPD, depression, osteoporosis, hypertension, who presented to [facility] emergency department on the day of admission secondary to complaints of shortness of breath. [facility] ER evaluation at that time was consistent with exacerbation of COPD. Secondary to the above, the patient was admitted by Desire Hernandez M.D. for further evaluation and treatment. For other history present illness, past medical history, family history, social history, review of systems, and admission physical examination please see the patient's history and physical examination and ER visit note in the patient's medical record. Subjective: The patient states she is doing okay. Shortness of breath stable. Persistent mild confusion/agitation. Patient requests: None Medications and Allergies Medications Current Medications Sig/Adriana Start time Last Medication Dose Route Stop Time Status Admin Levothyroxine Sodium 75 MCG DAILY@08/27 0600 AC 08/28 PO 0529 Pantoprazole Sodium 40 MG DAILY@08/27 0600 AC 08/28 Sesquihydrate PO 0529 Hydralazine HCl 10 MG Q6H PRN 08/27 0515 AC 08/27 IV 0650 Artificial Tears 0.02 OZ ASDIRECTED PRN 08/26 1600 AC OP Lisinopril 10 MG DAILY 08/26 0900 AC 08/27 PO 0912 Fluticasone/ See Dose RTBID 08/26 0800 AC 08/27 Salmeterol Insts (1) IN 1939 Clarify Med Order See Dose ASDIRECTED 08/25 1745 AC Insts (2) PO Cephalexin 500 MG TID 08/25 1400 AC 08/28 PO 0529 Prednisone 40 MG DAILY 08/25 0900 AC 08/27 PO 0912 Guaifenesin/ 20 ML Q4H PRN 08/25 0645 AC 08/26 Dextromethorphan PO 2113 Diltiazem HCl 180 MG DAILY 08/23 09 AC 08/27 PO 0912 Venlafaxine HCl 75 MG DAILY 08/23 09 AC 08/27 PO 0912 Trazodone HCl 50 MG QHS 08/23 0100 AC 08/27 PO 2026 Lorazepam See Dose Q2H PRN 08/22 2245 AC 08/28 Insts (3) IV 0259 Donepezil HCl 5 MG DAILY 08/22 223 AC 08/27 PO 09 Atenolol 50 MG BID 08/22 2099 AC 08/27 PO 2025 Clonazepam 0.25 MG QHS 08/22 2099 AC 08/27 PO 2027 Docusate Sodium 100 MG BID 08/22 2099 AC 08/27 PO 2025 Albuterol/Ipratropium 3 ML RTQ6H 08/22 2000 AC 08/27 IN 1937 Atorvastatin Calcium 40 MG QPM 08/22 1800 AC 08/27 PO 181 Acetaminophen 650 MG Q4H PRN 08/22 1530 AC PO Albuterol Sulfate 2.5 MG RTQ3H PRN 08/22 1530 AC IN Ondansetron HCl 4 MG Q6H PRN 08/22 1530 AC IV Dose Instructions: (1)Fluticasone/Salmeterol: 1 CLICK (2)Clarify Med Order: PT MEDS IN PHARMACY (3)Lorazepam: 1 - 2 MG Allergies Coded Allergies: Codeine (Severe, HIVES 20 YEARS AGO 08/22/16) Physical Exam Vital Signs / I&Os Vital Signs Date Time Temp Pulse Resp B/P Pulse O2 O2 Flow FiO2 Ox Delivery Rate 08/27 2252 98.1 59 20 118/55 96 Room Air 08/27 2100 2.0 08/27 2025 72 08/27 1759 98.2 72 20 127/59 92 Room Air 08/27 1443 97.5 68 20 131/83 93 Room Air 2.0 08/27 1206 97.5 68 20 154/81 93 Room Air 08/27 0912 71 I&O 08/28 0000 08/27 1600 08/27 0800 Intake Total 300 720 360 Output Total 125 1100 750 Balance 175 -380 -390 General Appearance Alert, Cooperative, No acute distress Lungs scattered rhonchi, minimal expiratory wheezes Cardiovascular Regular rate and rhythm, Normal S1 and S2 Abdomen Normal bowel sounds, Soft, No tenderness Extremities No cyanosis, No clubbing Neurological Cranial nerves intact, No lateralizing signs Psych/Mental Status Mood normal, Confused Assessment and Plan Problem List 1. Pneumonia Plan -Stable -Afebrile -Normal WBC -Normal Procalcitonin -Continue Keflex to complete a full course of antimicrobial therapy. 2. Hypertension Plan -Blood pressure well controlled -Continue present therapy -BP 134/74 mmHg -Low-salt diet 3. Hypothyroidism Plan -Stable -No further evaluation -Continue present therapy 4. Dementia with Lewy bodies Plan -Stable -Ativan when necessary for agitation -Monitor 5. COPD exacerbation Plan -Improved -Continue inhalation therapy -Prednisone 40 mg by mouth daily, wean to 20 mEq by mouth daily in a.m. -Patient off oxygen therapy 6. Chronic renal disease Plan -BUN and creatinine within normal limits -BUN/creatinine-12/0.6 -Monitor Current status: Fair, improved Anticipated discharge date: Anticipated discharge when residential/assisted living bedbound Anticipated discharge placement: assisted facility/assisted living Patient care time: Time spent in chart review, patient interview, physical exam, CPOE, and care documentation: 25 minutes Visit to patient today: 1 Complexity of care: Moderate E&M Codes Rounding: Inpt-Moderate/62060
[2016-08-28 10:52] VITALS: BP 168/83
[2016-08-28 14:39] VITALS: BP 134/74
[2016-08-28 21:10] VITALS: BP 113/73
[2016-08-28 22:51] VITALS: BP 115/58
[2016-08-29 02:20] VITALS: BP 153/71
[2016-08-29 06:13] VITALS: BP 160/67
--- NOTE | 2016-08-29 08:06 | Progress Note ---
Subjective General Note Date: August 29, 2016 Admission Date: August 22, 2016 Hospital Day: 8 PCP: Levi Cardoza M.D. Status: Inpatient Advanced Directive: FULL CODE Room: 305 Brief History: The patient is a 76-year-old white female with a significant past medical history of Lewy body dementia, peptic ulcer disease, COPD, depression, osteoporosis, hypertension, who presented to [facility] emergency department on the day of admission secondary to complaints of shortness of breath. [facility] ER evaluation at that time was consistent with exacerbation of COPD. Secondary to the above, the patient was admitted by Desire Hernandez M.D. for further evaluation and treatment. For other history present illness, past medical history, family history, social history, review of systems, and admission physical examination please see the patient's history and physical examination and ER visit note in the patient's medical record. Subjective: The patient states she is doing okay. Shortness of breath stable. No severe agitation. Plan discharge to assisted living/home in a.m. if stable Patient requests: None [] Medications and Allergies Medications Current Medications Sig/Adriana Start time Last Medication Dose Route Stop Time Status Admin Levothyroxine Sodium 75 MCG DAILY@08/27 0600 AC 08/29 PO 0611 Pantoprazole Sodium 40 MG DAILY@0608/27 0600 AC 08/29 Sesquihydrate PO 0611 Hydralazine HCl 10 MG Q6H PRN 08/27 0515 AC 08/27 IV 0650 Artificial Tears 0.02 OZ ASDIRECTED PRN 08/26 1600 AC OP Lisinopril 10 MG DAILY 08/26 09 AC 08/28 PO 1047 Fluticasone/ See Dose RTBID 08/26 0800 AC 08/28 Salmeterol Insts (1) IN 2003 Clarify Med Order See Dose ASDIRECTED 08/25 1745 AC Insts (2) PO Cephalexin 500 MG TID 08/25 1400 AC 08/29 PO 0611 Prednisone 40 MG DAILY 08/25 09 AC 08/28 PO 1047 Guaifenesin/ 20 ML Q4H PRN 08/25 0645 AC 08/28 Dextromethorphan PO 2303 Diltiazem HCl 180 MG DAILY 08/23 899 AC 08/28 PO 1047 Venlafaxine HCl 75 MG DAILY 08/23 899 AC 08/28 PO 1047 Trazodone HCl 50 MG QHS 08/23 0100 AC 08/28 PO 2107 Lorazepam See Dose Q2H PRN 08/22 2245 AC 08/29 Insts (3) IV 0228 Donepezil HCl 5 MG DAILY 08/22 2230 AC 08/28 PO 1048 Atenolol 50 MG BID 08/22 2100 AC 08/28 PO 210 Clonazepam 0.25 MG QHS 08/22 2100 AC 08/28 PO 2107 Docusate Sodium 100 MG BID 08/22 2100 AC 08/28 PO 2106 Albuterol/Ipratropium 3 ML RTQ6H 08/22 2000 AC 08/29 IN 0100 Atorvastatin Calcium 40 MG QPM 08/22 1800 AC 08/28 PO 1817 Acetaminophen 650 MG Q4H PRN 08/22 1530 AC PO Albuterol Sulfate 2.5 MG RTQ3H PRN 08/22 1530 AC IN Ondansetron HCl 4 MG Q6H PRN 08/22 1530 AC IV Dose Instructions: (1)Fluticasone/Salmeterol: 1 CLICK (2)Clarify Med Order: PT MEDS IN PHARMACY (3)Lorazepam: 1 - 2 MG Allergies Coded Allergies: Codeine (Severe, HIVES 20 YEARS AGO 08/22/16) Physical Exam Vital Signs / I&Os Vital Signs Date Time Temp Pulse Resp B/P Pulse O2 O2 Flow FiO2 Ox Delivery Rate 08/29 0613 97.5 61 18 160/67 96 Room Air 0.0 08/29 219 97.5 60 20 153/71 97 Room Air 0.0 08/28 2250 98.2 65 20 115/58 95 Room Air 0.0 08/28 2109 97.3 74 20 113/73 96 Room Air 0.0 08/28 2106 74 08/28 2053 Room Air 08/28 1539 Room Air 0.0 08/28 1439 97.9 68 18 134/74 96 Room Air 2.0 08/28 1227 2.0 08/28 1052 97.5 68 18 168/83 93 Room Air 08/28 1047 68 08/28 0903 0.0 I&O 08/29 0000 08/28 1600 08/28 0800 Intake Total 400 820 400 Output Total 500 300 450 Balance -100 520 -50 General Appearance Alert, Cooperative, No acute distress Lungs Minimal expiratory wheezes-much improved Cardiovascular Regular rate and rhythm, Normal S1 and S2 Abdomen Normal bowel sounds, Soft, No tenderness Extremities No cyanosis, No clubbing Neurological Cranial nerves intact, No lateralizing signs Psych/Mental Status Mood normal, Confused Assessment and Plan Problem List 1. COPD exacerbation Plan -Status continues to improve -Patient off all supplemental oxygen -Continue DuoNeb, albuterol, Advair Diskus, and tapering prednisone schedule. -Possible discharge in a.m. to home versus assisted living facility 2. Hypothyroidism Plan -Stable -Continue present therapy. -Recheck thyroid functions in 4 weeks. 3. Hypertension Plan -Blood pressure well controlled -Blood pressure 129/71 mmHg this a.m. -Low-salt diet -Continue present therapy -Monitor 4. Pneumonia Plan -Improved -Complete course of oral antimicrobials -Afebrile -Normal white count/Procalcitonin 5. Dementia with Lewy bodies Plan -Status stable -Persistent visual hallucinations -No significant agitation -Hopeful placement in assisted living in a.m. Current status: Fair, improved Anticipated discharge date: Anticipated discharge in a.m. Anticipated discharge placement: Assisted living/adult home Patient care time: Time spent in chart review, patient interview, physical exam, CPOE, and care documentation: 25 minutes Visit to patient today: 2 Complexity of care: Moderate E&M Codes Rounding: Inpt-Moderate/12271
[2016-08-29 11:48] VITALS: BP 129/71
[2016-08-29 14:37] VITALS: BP 116/53
[2016-08-29 18:10] VITALS: BP 117/97
[2016-08-29 20:20] VITALS: BP 142/74
[2016-08-30] VITALS: BP 145/72
[2016-08-30 04:05] VITALS: BP 143/82
--- NOTE | 2016-08-30 08:09 | Progress Note ---
Subjective General Note Date: August 30, 2016 Admission Date: August 22, 2016 Hospital Day: 9 PCP: Levi Cardoza M.D. Status: Inpatient Advanced Directive: FULL CODE Room: 305 Brief History: The patient is a 76-year-old white female with a significant past medical history of Lewy body dementia, peptic ulcer disease, COPD, depression, osteoporosis, hypertension, who presented to [facility] emergency department on the day of admission secondary to complaints of shortness of breath. [facility] ER evaluation at that time was consistent with exacerbation of COPD. Secondary to the above, the patient was admitted by Desire Hernandez M.D. for further evaluation and treatment. For other history present illness, past medical history, family history, social history, review of systems, and admission physical examination please see the patient's history and physical examination and ER visit note in the patient's medical record. Subjective: The patient states she is doing okay. Shortness of breath stable. No severe agitation. Plan discharge to to home today. Patient requests: None Medications and Allergies Medications Current Medications Sig/Adriana Start time Last Medication Dose Route Stop Time Status Admin Prednisone 20 MG DAILY 08/30 09 AC PO Clotrimazole 10 MG 5XD 08/29 1015 AC 08/30 PO 0501 Levothyroxine Sodium 75 MCG DAILY@08/27 0600 AC 08/30 PO 0501 Pantoprazole Sodium 40 MG DAILY@08/27 0600 AC 08/30 Sesquihydrate PO 0501 Hydralazine HCl 10 MG Q6H PRN 08/27 0515 08/27 IV 0650 Artificial Tears 0.02 OZ ASDIRECTED PRN 08/26 1600 AC OP Lisinopril 10 MG DAILY 08/26 0900 AC 08/29 PO 0844 Fluticasone/ See Dose RTBID 08/26 0800 AC 08/29 Salmeterol Insts (1) IN 1940 Clarify Med Order See Dose ASDIRECTED 08/25 1745 AC Insts (2) PO Cephalexin 500 MG TID 08/25 1400 AC 08/30 PO 0501 Guaifenesin/ 20 ML Q4H PRN 08/25 0645 AC 08/28 Dextromethorphan PO 2303 Diltiazem HCl 180 MG DAILY 08/23 09 AC 08/29 PO 0844 Venlafaxine HCl 75 MG DAILY 08/23 899 AC 08/29 PO 0844 Trazodone HCl 50 MG QHS 08/23 0100 AC 08/29 PO 2018 Lorazepam See Dose Q2H PRN 08/22 2245 AC 08/30 Insts (3) IV 0405 Donepezil HCl 5 MG DAILY 08/22 2230 AC 08/29 PO 0844 Atenolol 50 MG BID 08/22 2100 AC 08/29 PO 2018 Clonazepam 0.25 MG QHS 08/22 2100 AC 08/29 PO 2018 Docusate Sodium 100 MG BID 08/22 2100 AC 08/29 PO 2017 Albuterol/Ipratropium 3 ML RTQ6H 08/22 2000 AC 08/29 IN 1940 Atorvastatin Calcium 40 MG QPM 08/22 1800 AC 08/29 PO 1838 Acetaminophen 650 MG Q4H PRN 08/22 1530 AC PO Albuterol Sulfate 2.5 MG RTQ3H PRN 08/22 1530 AC IN Ondansetron HCl 4 MG Q6H PRN 08/22 1530 AC IV Dose Instructions: (1)Fluticasone/Salmeterol: 1 CLICK (2)Clarify Med Order: PT MEDS IN PHARMACY (3)Lorazepam: 1 - 2 MG Allergies Coded Allergies: Codeine (Severe, HIVES 20 YEARS AGO 08/22/16) Physical Exam Vital Signs / I&Os Vital Signs Date Time Temp Pulse Resp B/P Pulse O2 O2 Flow FiO2 Ox Delivery Rate 08/30 0405 66 22 143/82 94 Room Air 08/30 0000 97.9 69 20 145/72 96 Room Air 08/29 2019 98.2 80 20 142/74 98 Room Air 08/29 2018 80 08/29 1925 88 24 91 Room Air 08/29 1810 98.1 71 20 117/97 98 Room Air 08/29 1532 83 20 92 Room Air 08/29 1437 98.2 60 18 116/53 93 Room Air 08/29 1148 98.1 67 18 129/71 95 Room Air 08/29 0844 66 08/29 0830 0.0 I&O 08/30 0000 08/29 1600 08/29 0800 Intake Total 400 240 Output Total 1600 375 500 Balance -1200 -135 -500 General Appearance Alert, Cooperative, No acute distress Lungs Scattered rhonchi, otherwise clear to auscultation Cardiovascular Regular rate and rhythm, Normal S1 and S2 Abdomen Normal bowel sounds, Soft, No tenderness Extremities No cyanosis, No clubbing Neurological Grossly normal. Assessment and Plan Problem List 1. COPD exacerbation Plan -stable -Discharged today 2. Dementia with Lewy bodies Plan -Stable -Discharge today 3. Hypothyroidism Plan -Stable -Discharge today 4. Hypertension Plan -Stable -Discharge today -low salt diet 5. Pneumonia Plan -Resolved -Discharged today 6. Oral candidiasis Status Acute Onset Date 08/29/16 Plan -Patient has findings of oral candidiasis -Mycelex shaista one by mouth 5 times a day -Monitor Current status: Good, improved Anticipated discharge date: Today Anticipated discharge placement: Home Patient care time: Time spent in chart review, patient interview, physical exam, CPOE, and care documentation: greater than 30 minutes Visit to patient today: 2 Complexity of care: Moderate E&M Codes Discharge: Inpt >30 min spent/[id number]
--- NOTE | 2016-08-30 12:07 | Discharge Summary ---
Discharge Summary Report Admit Date 08/22/16 Discharge Date 08/30/16 Admission Diagnosis 1. Exacerbation of COPD 2. Lewy body dementia 3. Hypothyroidism 4. Hypertension 5. Pneumonia Discharge Diagnosis 1. Exacerbation of COPD 2. Lewy body dementia 3. Hypothyroidism 4. Hypertension 5. Pneumonia 6. Oral candidiasis Brief History The patient is a 76-year-old white female with a significant past medical history of Lewy body dementia, peptic ulcer disease, COPD, depression, osteoporosis, hypertension, who presented to [facility] emergency department on the day of admission secondary to complaints of shortness of breath. [facility] ER evaluation at that time was consistent with exacerbation of COPD. Secondary to the above, the patient was admitted by Desire Hernandez M.D. for further evaluation and treatment. For other history present illness, past medical history, family history, social history, review of systems, and admission physical examination please see the patient's history and physical examination and ER visit note in the patient's medical record. Hospital Course The following problems and their management were noted during the patient's hospitalization: 1. Exacerbation of COPD The patient presented with findings of exacerbation of COPD. She was treated with inhalational bronchodilators and IV/oral corticosteroids. Symptoms gradually improved. At the time of discharge the patient status was much improved and she required no supplemental oxygen. She is discharged on inhalation bronchodilators/oral corticosteroids. See discharge instructions. 2. Lewy body dementia The patient has a history of Lewy body dementia. She was at her baseline level of status at the time of discharge. See discharge instructions. Patient's family has initiated placement proceedings in a supervised living situation. 3. Hypothyroidism Stable. See discharge instructions 4. Hypertension Stable. See discharge instructions. Low-salt diet 5. Pneumonia The patient exhibited findings of mild pneumonia. This was resolved at the time of discharge. See discharge instructions. 6. Oral candidiasis The patient had findings of oral candidiasis. She was discharged on Mycelex shaista one by mouth 5 times a day. Lab/Imaging Chest x-ray IMPRESSION: 1. Development of mild of parenchymal changes in the right mid lower lung compatible with pneumonia (e.g., aspiration, bacterial, Mycoplasma). Dictated by: AUGUSTIN TOUSSAINT MD D: KYLEIGH;08/26/16 0627 Discharge Instructions/Meds For other recommendations regarding discharge diet, activity, followup, and discharge medications please see the patient's discharge instructions. Discharge condition: Fair, improved Greater than 30 min. was spent in the patient's discharge preparation including discharge interview and physical examination, progress note, discharge instructions, and discharge summary The patient was interviewed and examined on the day of discharge. E&M Codes Discharge: Inpt >30 min spent/68048
--- NOTE | 2016-08-30 12:07 | Discharge Summary ---
Discharge Summary Report Admit Date 08/22/16 Discharge Date 08/30/16 Admission Diagnosis 1. Exacerbation of COPD 2. Lewy body dementia 3. Hypothyroidism 4. Hypertension 5. Pneumonia Discharge Diagnosis 1. Exacerbation of COPD 2. Lewy body dementia 3. Hypothyroidism 4. Hypertension 5. Pneumonia 6. Oral candidiasis Brief History The patient is a 76-year-old white female with a significant past medical history of Lewy body dementia, peptic ulcer disease, COPD, depression, osteoporosis, hypertension, who presented to [facility] emergency department on the day of admission secondary to complaints of shortness of breath. [facility] ER evaluation at that time was consistent with exacerbation of COPD. Secondary to the above, the patient was admitted by Desire Hernandez M.D. for further evaluation and treatment. For other history present illness, past medical history, family history, social history, review of systems, and admission physical examination please see the patient's history and physical examination and ER visit note in the patient's medical record. Hospital Course The following problems and their management were noted during the patient's hospitalization: 1. Exacerbation of COPD The patient presented with findings of exacerbation of COPD. She was treated with inhalational bronchodilators and IV/oral corticosteroids. Symptoms gradually improved. At the time of discharge the patient status was much improved and she required no supplemental oxygen. She is discharged on inhalation bronchodilators/oral corticosteroids. See discharge instructions. 2. Lewy body dementia The patient has a history of Lewy body dementia. She was at her baseline level of status at the time of discharge. See discharge instructions. Patient's family has initiated placement proceedings in a supervised living situation. 3. Hypothyroidism Stable. See discharge instructions 4. Hypertension Stable. See discharge instructions. Low-salt diet 5. Pneumonia The patient exhibited findings of mild pneumonia. This was resolved at the time of discharge. See discharge instructions. 6. Oral candidiasis The patient had findings of oral candidiasis. She was discharged on Mycelex shaista one by mouth 5 times a day. Lab/Imaging Chest x-ray IMPRESSION: 1. Development of mild of parenchymal changes in the right mid lower lung compatible with pneumonia (e.g., aspiration, bacterial, Mycoplasma). Dictated by: AUGUSTIN TOUSSAINT MD D: KYLEIGH;08/26/16 0627 Discharge Instructions/Meds For other recommendations regarding discharge diet, activity, followup, and discharge medications please see the patient's discharge instructions. Discharge condition: Fair, improved Greater than 30 min. was spent in the patient's discharge preparation including discharge interview and physical examination, progress note, discharge instructions, and discharge summary The patient was interviewed and examined on the day of discharge. E&M Codes Discharge: Inpt >30 min spent/[id number]
[2016-08-30] MEDS ORDERED: COMBIVENT RESPIMAT IN (12:15)
[2016-08-30] MEDS ORDERED: ARICEPT5 MG PO (12:15)
[2016-08-30] MEDS ORDERED: ADVAIR DISKU1 IN (12:15)
[2016-08-30] MEDS ORDERED: PREDNISONE20 MG PO (12:19)
[2016-08-30] MEDS ORDERED: MYCELEX10 MG PO (12:20)
--- NOTE | 2016-08-30 12:22 | Provider's Discharge Care Plan ---
Problem, Goal, Plan Problem List 1. COPD exacerbation Goals: Improve disease control, Improve function, Improved health/wellness, Prevent disease progress Instructions: Follow up as directed, Take meds as directed 2. Dementia with Lewy bodies Goals: Improve disease control, Prevent disease progress Instructions: Follow up as directed, Take meds as directed 3. Oral candidiasis Goals: Improve disease control, Improved health/wellness, Prevent disease progress Instructions: Follow up as directed, Take meds as directed
== END 2016-08-30 15:50 | disposition home or self-care (01) | DRG 189 ==
LOC: ED SRH 07:23 → TRANS SRH 15:07 → CC SRH 16:02
PROVIDERS: ADMIT Family Medicine
DX: J96.01 Acute respiratory failure with hypoxia (principal); J44.1 Chronic obstructive pulmonary disease with (acute) exacerbation; J45.901 Unspecified asthma with (acute) exacerbation; J44.0 Chronic obstructive pulmonary disease with (acute) lower respiratory infection; J18.9 Pneumonia, unspecified organism; B37.0 Candidal stomatitis; I12.9 Hypertensive chronic kidney disease with stage 1 through stage 4 chronic kidney disease, or unspecified chronic kidney disease; N18.9 Chronic kidney disease, unspecified; E03.9 Hypothyroidism, unspecified; F32.9 Major depressive disorder, single episode, unspecified; G31.83 Neurocognitive disorder with Lewy bodies; F02.80 Dementia in other diseases classified elsewhere, unspecified severity, without behavioral disturbance, psychotic disturbance, mood disturbance, and anxiety
CPT/HCPCS: 90047; 90065; 90074; 90098; 90100; 90648; 91023; 91320; 91400; 91556; 92031; 92132; 92690; 92710; 92720; 93004; 93140; 95059

== ENCOUNTER → 2017-02-02 | Outpatient (CLI) | payer OTHER ==
[~2017-02-02] MED LIST: ADVAIR DISKU1 IN; ADVAIR DISKU1 INH; ARICEPT5 MG PO; ATENOLOL50 MG PO; CALCIUM CARBON500 MG PO; CLONAZEPAM1 MG PO; COMBIVENT RESPIMAT IN; DILTIAZEM HCL; EQL OMEPRAZOLE20 MG; LEVOTHYROXINE50 MCG PO; LOVASTATIN40 MG PO; MYCELEX10 MG PO; NAPROXEN250 MG PO; PREDNISONE20 MG PO; TRAMADOL HCL50 MG PO; TRAZODONE HCL50 MG PO; VENLAFAXINE HCL25 MG PO; VITAMIN D-31000 UNIT PO; ZYMAXID
--- NOTE | 2017-02-02 14:23 | DIAGNOSTIC IMAGING REPORT ---
PROCEDURE: DEXA BONE DENSITY STUDY CLINICAL INDICATION: OSTEOPOROSIS COMPARISON: None. FINDINGS: LUMBAR SPINE: Bone mineral density is 0.881, T-score -1.5, osteopenia LEFT HIP: Bone mineral density 0.722, T-score -1.8, osteopenia LEFT FEMORAL NECK: Bone mineral density 0.572, T-score -2.5, osteoporosis. (T score greater or equal to -1.0 to: NORMAL) (T score from -1.1 to -2.4: OSTEOPENIA) (T score ess than or equal to -2.5: OSTEOPOROSIS) IMPRESSION: 1. Lumbar spine osteopenia 2. Left hip osteoporosis
== END ==
LOC: XR SRH 13:38
DX: M85.88 Other specified disorders of bone density and structure, other site (principal); M81.0 Age-related osteoporosis without current pathological fracture